=== PATIENT | male | born 1940 | race Caucasian/White ===

== ENCOUNTER 2016-05-18 19:47 | Emergency (ER) | payer OTHER ==
[~2016-05-18] VITALS: Ht 182.9 cm; Wt 112.5 kg
[~2016-05-18 19:47] MED LIST: ASPI81TA2 PO; CARV12.52 PO; CLOP75TA PO; CRESTOR10 MG PO; FURO20TA3 PO; OXYC-323 PO; PARO10TA3 PO; RAMI5CAP PO
[2016-05-18 20:54] LABS: BASO % 0 % (0-3); EOS % 2 % (0-3); HEMATOCRIT 47.5 % (39.0-53.0); HEMOGLOBIN 15.6 g/dL (13.0-17.5); LYMPH # 1.8 x10^3/uL (1.0-4.8); LYMPH % 21 % (24-48); MEAN CORPUSCULAR HEMOGLOBIN 30 pg (25-35); MEAN CORPUSCULAR HGB CONC 33 g/dL (31-37); MEAN CORPUSCULAR VOLUME 91 fL (79-100); MONO % 10 % (0-9); NEUT % 67 % (31-73); PLATELET COUNT 205 x10^3/uL (140-400); RED BLOOD COUNT 5.21 x10^6/uL (4.30-5.70); RED CELL DISTRIBUTION WIDTH 14.2 % (11.5-14.5); WHITE BLOOD COUNT 8.7 x10^3/uL (4.0-11.0)
[2016-05-18 21:04] LABS: CALCIUM 9.3 mg/dL (8.5-10.1); GFR 72.5; POTASSIUM 4.5 mmol/L (3.5-5.1)
--- NOTE | 2016-05-18 21:05 | PHYS DOC ---
Past Medical History Past Medical History: A-Fib, CHF, Hypertension, [place] Additional Past Medical Histor: HYPOGLYCEMIA Past Surgical History: Cholecystectomy Additional Past Surgical Histo: 12 STENTS Alcohol Use: None Drug Use: None Adult General Chief Complaint Chief Complaint: WEAKNESS/GENERALIZED HPI HPI Patient is a 76 year old male who presents by EMS for general weakness and fatigue for the past 3 weeks and an episode of hematuria 3 days ago. He has normal urine since that time. He denies fever or chills, nausea or vomiting, diarrhea, constipation, dark or bloody stools, dysuria, chest pain, dyspnea, orthopnea, worsening of chronic leg swelling, worsening of chronic back pain. Review of Systems Review of Systems Constitutional: Denies fever or chills [] Eyes: Denies change in visual acuity, redness, or eye pain [] HENT: Denies nasal congestion or sore throat [] Respiratory: Denies cough or shortness of breath [] Cardiovascular: No additional information not addressed in HPI [] GI: Denies abdominal pain, nausea, vomiting, bloody stools or diarrhea [] : Denies dysuria [] Musculoskeletal: Denies back pain or joint pain [] Integument: Denies rash or skin lesions [] Neurologic: Denies headache, focal weakness or sensory changes [] Endocrine: Denies polyuria or polydipsia [] Allergies Allergies Allergies Coded Allergies Type Severity Reaction Last Updated Verified acetaminophen Allergy Intermediate 10/16/15 Yes Physical Exam Physical Exam Constitutional: Well developed, well nourished, no acute distress, non-toxic appearance. [] HENT: Normocephalic, atraumatic, bilateral external ears normal, oropharynx moist, no oral exudates, nose normal. [] Eyes: PERRLA, EOMI. [] Neck: Normal range of motion, supple. [] Cardiovascular:Heart rate regular rhythm [] Lungs & Thorax: Bilateral breath sounds clear to auscultation [] Abdomen: Bowel sounds normal, soft, no tenderness. [] Skin: Warm, dry, no erythema, no rash. [] Back: No tenderness, no CVA tenderness. [] Extremities: No tenderness, ROM intact, bilateral 1+ LE edema. [] Neurologic: Alert and oriented X 3, normal motor function, normal sensory function, no focal deficits noted. [] Psychologic: Affect normal, judgement normal, mood normal. [] Current Patient Data Vital Signs Vital Signs Date Time Temp Pulse Resp B/P Pulse Ox O2 Delivery O2 Flow Rate FiO2 05/18/16 21:50 84 15 178/103 95 Room Air 05/18/16 19:50 97.9 97.9 Lab Values Laboratory Tests Test 05/18/16 20:00 05/18/16 21:00 White Blood Count 8.7x10^3/uL (4.0-11.0) Red Blood Count 5.21x10^6/uL (4.30-5.70) Hemoglobin 15.6g/dL (13.0-17.5) Hematocrit 47.5% (39.0-53.0) Mean Corpuscular Volume 91fL (79-100) Mean Corpuscular Hemoglobin 30pg (25-35) Mean Corpuscular Hemoglobin Concent 33g/dL (31-37) Red Cell Distribution Width 14.2% (11.5-14.5) Platelet Count 205x10^3/uL (140-400) Neutrophils (%) (Auto) 67% (31-73) Lymphocytes (%) (Auto) 21% (24-48) L Monocytes (%) (Auto) 10% (0-9) H Eosinophils (%) (Auto) 2% (0-3) Basophils (%) (Auto) 0% (0-3) Neutrophils # (Auto) 5.8x10^3uL (1.8-7.7) Lymphocytes # (Auto) 1.8x10^3/uL (1.0-4.8) Monocytes # (Auto) 0.9x10^3/uL (0.0-1.1) Eosinophils # (Auto) 0.2x10^3/uL (0.0-0.7) Basophils # (Auto) 0.0x10^3/uL (0.0-0.2) Sodium Level 141mmol/L (136-145) Potassium Level 4.5mmol/L (3.5-5.1) Chloride Level 102mmol/L (98-107) Carbon Dioxide Level 28mmol/L (21-32) Anion Gap 11 (6-14) Blood Urea Nitrogen 17mg/dL (8-26) Creatinine 1.0mg/dL (0.7-1.3) Estimated GFR (Cockcroft-Gault) 72.5 Glucose Level 109mg/dL (70-99) H Calcium Level 9.3mg/dL (8.5-10.1) Creatine Kinase 59U/L (39-308) Troponin I Quantitative < 0.017ng/mL (0.000-0.055) IO-Zxd-I-Type Natriuretic Peptide 673pg/mL (0-449) H Urine Collection Type Unknown Urine Color Yellow Urine Clarity Clear Urine pH 5.0 Urine Specific [place] 1.025 Urine Protein 30mg/dL (NEG-TRACE) Urine Glucose (UA) Negativemg/dL (NEG) Urine Ketones (Stick) Negativemg/dL (NEG) Urine Blood Trace (NEG) Urine Nitrite Negative (NEG) Urine Bilirubin Small (NEG) Urine Urobilinogen Dipstick 0.2mg/dL (0.2 mg/dL) Urine Leukocyte Esterase Negative (NEG) Urine RBC Occ/HPF (0-2) Urine WBC Occ/HPF (0-4) Urine Squamous Epithelial Cells Occ/LPF Urine Bacteria 0/HPF (0-FEW) Urine Hyaline Casts Few/HPF Urine Mucus Mod/LPF Laboratory Tests 05/18/16 20:00 Laboratory Tests 05/18/16 20:00 EKG EKG EKG as interpreted by me as atrial fibrillation, rate 69, no ST-T changes Course & Med Decision Making Course & Med Decision Making Pertinent Labs and Imaging studies reviewed. (See chart for details) Workup is unremarkable. He would like to go home. Return precautions given. He understands and agrees with plan. Dragon Disclaimer Dragon Disclaimer This electronic medical record was generated, in whole or in part, using a voice recognition dictation system. Departure Departure Impression: Primary Impression: Fatigue Additional Impression: Hematuria Disposition: HOME, SELF-CARE Condition: STABLE Referrals: COLLINS WARNER MD (PCP) Patient Instructions: Hematuria, Adult Additional Instructions: Follow-up with your primary care doctor. Return for any concerns. Problem Qualifiers Primary Impression: Fatigue Fatigue type: unspecified Qualified Code: R53.83 - Other fatigue Angie BHATIA MD May 18, 2016 21:05
[2016-05-18 21:16] LABS: BILIRUBIN,URINE SMALL (NEG); GLUCOSE,URINE NEGATIVE (NEG); NITRITE,URINE NEGATIVE (NEG); PROTEIN,URINE 30 mg/dL (NEG-TRACE); UROBILINOGEN,URINE 0.2 mg/dL (0.2 mg/dL)
[2016-05-18 21:32] LABS: BACTERIA,URINE 0 /HPF (0-FEW); RBC,URINE OCC /HPF (0-2); SQUAMOUS EPITHELIAL CELL,UR OCC /LPF; WBC,URINE OCC /HPF (0-4)
[2016-05-18 21:50] VITALS: BP 178/103
--- NOTE | 2016-05-19 09:46 | EKG ---
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
== END 2016-05-18 21:55 | disposition home or self-care (01) ==
LOC: ER 19:47
DX: R31.9 Hematuria, unspecified (principal); R53.1 Weakness; R53.83 Other fatigue; I11.0 Hypertensive heart disease with heart failure; I50.9 Heart failure, unspecified; I48.91 Unspecified atrial fibrillation; I25.2 Old myocardial infarction; Z95.5 Presence of coronary angioplasty implant and graft; Z90.49 Acquired absence of other specified parts of digestive tract; Z88.6 Allergy status to analgesic agent
CPT/HCPCS: 36415; 80048; 81001; 82550; 83880; 84484; 85027; 93005; 99285-25

== ENCOUNTER 2016-09-26 14:19 | Observation (INO) | payer OTHER ==
[~2016-09-26] VITALS: Ht 182.9 cm; Wt 115.2 kg
[~2016-09-26 14:19] MED LIST changes: +ASPI-630 PO; -ASPI81TA2 PO
--- NOTE | 2016-09-26 14:40 | RAD ---
Portable AP upright view CXR: Clinical indications: The patient passed out and fell. Weakness. Comparison: None available. Findings: No acute lung infiltrate or pleural effusion or pulmonary edema or lung mass or pneumothorax is seen. The heart size, pulmonary vasculature, mediastinum and both yair are unremarkable given rotation towards the right side and AP magnification. Impression: No acute radiographic abnormality is seen.
[2016-09-26 14:53] LABS: BASO % 0 % (0-3); EOS % 2 % (0-3); HEMOGLOBIN 15.3 g/dL (13.0-17.5); LYMPH # 1.5 x10^3/uL (1.0-4.8); LYMPH % 19 % (24-48); MEAN CORPUSCULAR HEMOGLOBIN 30 pg (25-35); MEAN CORPUSCULAR HGB CONC 33 g/dL (31-37); MEAN CORPUSCULAR VOLUME 91 fL (79-100); MONO % 10 % (0-9); NEUT % 69 % (31-73); PLATELET COUNT 198 x10^3/uL (140-400); RED BLOOD COUNT 5.08 x10^6/uL (4.30-5.70); WHITE BLOOD COUNT 7.9 x10^3/uL (4.0-11.0)
[2016-09-26 15:22] LABS: CALCIUM 9.2 mg/dL (8.5-10.1); CREATININE 1.4 mg/dL (0.7-1.3); GFR 49.1; POTASSIUM 3.7 mmol/L (3.5-5.1)
[2016-09-26 15:27] LABS: ALBUMIN 3.7 g/dL (3.4-5.0); ALBUMIN/GLOBULIN RATIO 1.1 (1.0-1.7); TOTAL BILIRUBIN 0.7 mg/dL (0.2-1.0); TOTAL PROTEIN 7.2 g/dL (6.4-8.2)
--- NOTE | 2016-09-26 15:40 | RAD ---
CT head without intravenous contrast History: Left-sided drift, syncope. Comparison: None. Technique: Axial images are obtained of the head from the skull base through the vertex without IV contrast. Exposure: One or more of the following individualized dose reduction techniques were utilized for this examination: 1. Automated exposure control 2. Adjustment of the mA and/or kV according to patient size 3. Use of iterative reconstruction technique Findings: The ventricles are appropriate in size, shape, and location for the patient's age. No obvious intracranial mass, mass-effect, midline shift, hemorrhage or obvious acute infarction is identified. Basilar cisterns are patent. Bone windows demonstrate no acute calvarial abnormality. The visualized paranasal sinuses appear clear. Impression: No acute intracranial process. Please note that CT can be relatively insensitive to acute ischemic infarction for up to [address] cervical spine History: Left-sided drift, syncope. Comparison: None. Technique: Noncontrast CT of the cervical spine was performed using helical technique. Axial, sagittal, coronal reconstructions were obtained. Exposure: One or more of the following individualized dose reduction techniques were utilized for this examination: 1. Automated exposure control 2. Adjustment of the mA and/or kV according to patient size 3. Use of iterative reconstruction technique Findings: There is no evidence of acute fracture or acute malalignment involving the cervical spine. No prevertebral soft tissue swelling is identified. Multilevel degeneration is seen with facet and uncovertebral hypertrophy. Multiple level levels demonstrate anterior disc osteophytes. Impression: 1. No evidence of acute traumatic injury involving the cervical spine. 2. Degeneration. Electronically signed by: Martin Li MD (09/26/2016 3:37 PM) [place] [id number]
--- NOTE | 2016-09-26 15:55 | PHYS DOC ---
Past Medical History Past Medical History: A-Fib, CHF, Hypertension, [place] Additional Past Medical Histor: HYPOGLYCEMIA Past Surgical History: Cholecystectomy Additional Past Surgical Histo: 12 STENTS Alcohol Use: None Drug Use: None Adult General Chief Complaint Chief Complaint: WEAKNESS/GENERALIZED HPI HPI 76-year-old male presenting to the emergency department with a possible syncopal episode around 12:30. He reports mowing his lawn when he came inside to cool off he fell back and hit the back of his head. He is mild pain in his head in the midline of his neck. It is nonradiating intermittent and without alleviating factors. He reports not eating as much as normally yesterday. He does have a history of hypoglycemia [place] and CHF. He denies having chest pain shortness of breath or any of the anginal equivalents. Now, he is feeling much better other than a mild headache after sustaining head injury. Review of systems is negative for fevers chills nausea vomiting chest pain shortness of breath abdominal pain. All other review of systems is negative unless otherwise noted in history of present illness. ED course: 76-year-old male presenting to the emergency department today with a possible syncopal episode and head trauma. Triage vital signs afebrile with normal heart rate. Initially the patient was saturating 90% on room air placed on 2 liters nasal cannula. During the patient's emergency department stay he was noted at approximately 14 55 patient had left sided weakness of his upper and lower extremity. I went to evaluate the patient immediately after arriving here at 1505 . On my examination the patient has a normal neurologic examination. Head neck CT obtained which were unremarkable. Blood work obtained as well which was unremarkable. Given the patient's unilateral focal neurologic deficits and hypoxia, the patient was admitted to our hospital for further evaluation workup and care. Review of Systems Review of Systems SEE ABOVE. Current Medications Current Medications Current Medications Medications (Trade) Dose Ordered Sig/Radha Start Time Stop Time Status Last Admin Dose Admin Albuterol/ Ipratropium (Duoneb) 3 ml RTQID 09/26/16 16:00 09/27/16 15:59 09/26/16 21:15 3 ML Aspirin (Children'S Aspirin) 324 mg 1X ONCE 09/26/16 16:00 09/26/16 16:01 DC 09/26/16 16:32 324 MG Morphine Sulfate 2 mg PRN Q2HR PRN 09/26/16 16:00 09/27/16 15:59 Ondansetron HCl (Zofran) 4 mg PRN Q8HRS PRN 09/26/16 16:00 09/27/16 15:59 Allergies Allergies Allergies Coded Allergies Type Severity Reaction Last Updated Verified acetaminophen Allergy Intermediate 10/16/15 Yes Physical Exam Physical Exam SEE ABOVE Constitutional: Well developed, well nourished, no acute distress, non-toxic appearance. [] HENT: Normocephalic, atraumatic, bilateral external ears normal, oropharynx moist, no oral exudates, nose normal. [] Eyes: PERRLA, EOMI, conjunctiva normal, no discharge. [] Neck: Normal range of motion, no tenderness, supple, no stridor. [] Cardiovascular:Heart rate regular rhythm, no murmur [] Lungs & Thorax: Bilateral breath sounds clear to auscultation [] Abdomen: Bowel sounds normal, soft, no tenderness, no masses, no pulsatile masses. [] Skin: Warm, dry, no erythema, no rash. [] Back: No tenderness, no CVA tenderness. [] Extremities: No tenderness, no cyanosis, no clubbing, ROM intact, no edema. [] Neurologic: Mental status: Awake oriented and alert x3 Cranial nerves: Extraocular movements intact, eyebrows daiana bilaterally smile symmetric, uvula elevation, shoulder shrug intact, tongue protrusion normal DTRs: 2+ Sensation: equal and normal in all extremities Strength: 5/5 in upper and lower extremities bilaterally Psychologic: Affect normal, judgement normal, mood normal. [] Current Patient Data Vital Signs Vital Signs Date Time Temp Pulse Resp B/P (MAP) Pulse Ox O2 Delivery O2 Flow Rate FiO2 09/26/16 15:56 78 14 109/82 (91) 98 09/26/16 15:11 Nasal Cannula 2.0 09/26/16 14:19 98.2 98.2 Lab Values Laboratory Tests Test 09/26/16 14:45 09/26/16 15:35 09/26/16 15:53 White Blood Count 7.9 x10^3/uL (4.0-11.0) Red Blood Count 5.08 x10^6/uL (4.30-5.70) Hemoglobin 15.3 g/dL (13.0-17.5) Hematocrit 46.0 % (39.0-53.0) Mean Corpuscular Volume 91 fL (79-100) Mean Corpuscular Hemoglobin 30 pg (25-35) Mean Corpuscular Hemoglobin Concent 33 g/dL (31-37) Red Cell Distribution Width 14.0 % (11.5-14.5) Platelet Count 198 x10^3/uL (140-400) Neutrophils (%) (Auto) 69 % (31-73) Lymphocytes (%) (Auto) 19 % (24-48) L Monocytes (%) (Auto) 10 % (0-9) H Eosinophils (%) (Auto) 2 % (0-3) Basophils (%) (Auto) 0 % (0-3) Neutrophils # (Auto) 5.5 x10^3uL (1.8-7.7) Lymphocytes # (Auto) 1.5 x10^3/uL (1.0-4.8) Monocytes # (Auto) 0.8 x10^3/uL (0.0-1.1) Eosinophils # (Auto) 0.2 x10^3/uL (0.0-0.7) Basophils # (Auto) 0.0 x10^3/uL (0.0-0.2) Sodium Level 139 mmol/L (136-145) Potassium Level 3.7 mmol/L (3.5-5.1) Chloride Level 100 mmol/L (98-107) Carbon Dioxide Level 30 mmol/L (21-32) Anion Gap 9 (6-14) Blood Urea Nitrogen 16 mg/dL (8-26) Creatinine 1.4 mg/dL (0.7-1.3) H Estimated GFR (Cockcroft-Gault) 49.1 BUN/Creatinine Ratio 11 (6-20) Glucose Level 126 mg/dL (70-99) H Calcium Level 9.2 mg/dL (8.5-10.1) Total Bilirubin 0.7 mg/dL (0.2-1.0) Aspartate Amino Transferase (AST) 49 U/L (15-37) H Alanine Aminotransferase (ALT) 53 U/L (16-63) Alkaline Phosphatase 119 U/L (46-116) H Troponin I Quantitative < 0.017 ng/mL (0.000-0.055) AK-Apu-F-Type Natriuretic Peptide 845 pg/mL (0-449) H Total Protein 7.2 g/dL (6.4-8.2) Albumin 3.7 g/dL (3.4-5.0) Albumin/Globulin Ratio 1.1 (1.0-1.7) Lactic Acid Level 2.0 mmol/L (0.4-2.0) Urine Collection Type Unknown Urine Color Dk yellow Urine Clarity Hazy Urine pH 5.0 Urine Specific [place] 1.020 Urine Protein Negative mg/dL (NEG-TRACE) Urine Glucose (UA) Negative mg/dL (NEG) Urine Ketones (Stick) Negative mg/dL (NEG) Urine Blood Negative (NEG) Urine Nitrite Negative (NEG) Urine Bilirubin Small (NEG) Urine Urobilinogen Dipstick 1.0 mg/dL (0.2 mg/dL) Urine Leukocyte Esterase Trace (NEG) Urine RBC 0 /HPF (0-2) Urine WBC Occ /HPF (0-4) Urine Squamous Epithelial Cells Occ /LPF Urine Bacteria 0 /HPF (0-FEW) Urine Hyaline Casts Many /HPF Urine Mucus Marked /LPF Urine Opiates Screen Pos (NEG) Urine Methadone Screen Neg (NEG) Urine Barbiturates Neg (NEG) Urine Phencyclidine Screen Neg (NEG) Urine Amphetamine/Methamphetamine Neg (NEG) Urine Benzodiazepines Screen Pos (NEG) Urine Cocaine Screen Neg (NEG) Urine Cannabinoids Screen Neg (NEG) Urine Ethyl Alcohol Neg (NEG) Laboratory Tests 09/26/16 14:45 Laboratory Tests 09/26/16 14:45 EKG EKG [] Radiology/Procedures Radiology/Procedures [] Course & Med Decision Making Course & Med Decision Making Pertinent Labs and Imaging studies reviewed. (See chart for details) [] Dragon Disclaimer Dragon Disclaimer This electronic medical record was generated, in whole or in part, using a voice recognition dictation system. Departure Departure Impression: Primary Impression: Generalized weakness Additional Impressions: Head injury Unilateral weakness TIA (transient ischemic attack) Disposition: 09 ADMITTED INPATIENT Admitting Physician: Other (premsingh) Condition: STABLE Referrals: COLLINS WARNER MD (PCP) Problem Qualifiers ROSANA LARSON MD Sep 26, 2016 15:54
[2016-09-26 16:00] LABS: BILIRUBIN,URINE SMALL (NEG); GLUCOSE,URINE NEGATIVE (NEG); NITRITE,URINE NEGATIVE (NEG); PROTEIN,URINE NEGATIVE (NEG-TRACE)
[2016-09-26] MEDS ORDERED: ONDANSETRON PF 4 MG/2 ML VIAL. IV PRN (16:00)
[2016-09-26] MEDS ORDERED: ASPIRIN CHEWABLE 81 MG TABLET. PO ONE (16:00)
[2016-09-26] MEDS ORDERED: MORPHINE SULFATE 2 MG/ML DISP.SYRIN. IV PRN (16:00)
[2016-09-26 16:07] LABS: RBC,URINE 0 /HPF (0-2)
[2016-09-26 16:08] LABS: BACTERIA,URINE 0 /HPF (0-FEW); SQUAMOUS EPITHELIAL CELL,UR OCC /LPF; WBC,URINE OCC /HPF (0-4)
[2016-09-26 16:13] LABS: BARBITURATES NEG (NEG); BENZODIAZEPINES POS (NEG); CANNABINOIDS NEG (NEG); COCAINE NEG (NEG); METHADONE NEG (NEG); OPIATES POS (NEG); PHENCYCLIDINE NEG (NEG)
[2016-09-26] MEDS: IPRATRPIUM/ALBUTEROL 0.5/2.5MG 3 ML NEBU. NEB SCH ×2 (16:36→21:15)
[2016-09-26] MEDS ORDERED: OXYC10TA PO (18:15)
[2016-09-26] MEDS ORDERED: ALPR1TAB6 PO (18:15)
[2016-09-26] MEDS ORDERED: NITR0.4T22 SL (18:20)
[2016-09-26 19:00] VITALS: BP 99/55
[2016-09-26] MEDS ORDERED: PNEUMOCOCCAL VAX SCREEN BY RX. MC ONE (19:00)
[2016-09-26] MEDS ORDERED: NITROGLYCERIN SUBLINGUAL 0.4 MG BOTTLE OF 25. SL PRN (21:00)
[2016-09-26] MEDS ORDERED: ALPRAZolam 1 MG TABLET PO PRN (21:00)
[2016-09-26] MEDS ORDERED: ATORVASTATIN CALCIUM 40 MG TABLET. PO SCH (21:00)
[2016-09-26 23:00] VITALS: BP 137/70
--- NOTE | 2016-09-27 02:08 | CONS ---
DATE OF CONSULTATION: 09/26/2016 REFERRING PHYSICIAN: Dr. Vitale. REASON FOR CONSULTATION: Episode of syncope and possible transient ischemic attack. HISTORY OF PRESENT ILLNESS: The patient is a 76-year-old man who was out mowing his lawn today. He felt weak and dizzy and stopped mowing his lawn and came inside. Once inside, he felt worse and struck the floor with the back of his head. He feels back to his usual self. In the Emergency Room, they noted after he had been here a while, that he had some drift of his left arm and leg, but this only lasted 10 minutes and resolved. Of note is that he has broken his left shoulder twice and it is very painful to hold up his arm and he has weakness. 911 was activated to bring in to the Emergency Room because he was unable to get up off the floor. He feels stronger than he was on the floor, but still does not feel quite back to normal. His entire body aches from his activities many years ago. He does not complain of any headache. He is not aware of any cognitive changes. He has been able to speak and understand. There has been no acute change in vision or hearing. He is not aware of any focal weakness of an arm or leg other than the chronic weakness of his left shoulder from prior injury. PAST MEDICAL HISTORY: 1. Congestive heart failure. 2. Hypertension. 3. Myocardial infarction. 4. Atrial fibrillation. 5. Hypoglycemia. 6. Cholecystectomy. 7. Coronary artery disease, status post stents. ALLERGIES: ACETAMINOPHEN. MEDICATIONS PRIOR TO ADMISSION: Alprazolam 1 mg every 6 hours as needed, aspirin 81 mg, carvedilol 12.5 mg twice per day, clopidogrel 75 mg, furosemide 20 mg, nitroglycerin sublingual as needed, oxycodone 10 mg every 6 hours as needed, paroxetine 10 mg, ramipril 5 mg and rosuvastatin 10 mg. FAMILY HISTORY: Noncontributory. SOCIAL HISTORY: He has been a for 3 years. He has a woman that comes in 3 times a day to help him out and fix meals. He lives alone. He does not drink alcohol or use recreational drugs. REVIEW OF SYSTEMS: He does not have a headache. There has been no change of vision or hearing. He has had no change in speech or cognition that he is aware. He has been able to swallow without difficulty. He has not had shortness of breath, chest or abdominal pain. He does have a lot of bone and joint pain. He has especially left shoulder pain as he fractured it twice in a 2-month time frame from trauma. He notes weakness holding the arm out in front of him and up in the air. There has been no fever or rash. He has not had gastrointestinal or genitourinary complaints. He does have chronic swelling of his feet and legs. He denies any psychiatric complaints. He does complain of some numbness in his feet. His balance has been a little off. He does not complain of easy bruising or bleeding. PHYSICAL EXAMINATION: VITAL SIGNS: The blood pressure was 99/55, pulse 78, respirations 20, temperature 98.5 degrees Fahrenheit. Oximetry was 99% on room air. His weight was 239 pounds with height of 72 inches and a calculated body mass index of 32.4. GENERAL: He was alert, awake and cooperative. Speech, plodded along, was slow and methodical. He was slightly confused thinking he had actually been in the hospital for one day, when in fact he was just admitted today and has not yet spent the night. His fund of recent and remote knowledge seemed fair. Attention and concentration was intact. He was oriented. His grooming was fair and he was well nourished. NEUROLOGIC: Examination of the cranial nerves revealed visual yi were full to confrontation. Extraocular movements were intact. The eyes were conjugate. Pursuit movements were smooth and saccadic eye movements were without dysmetria. There was no nystagmus. Pupils were 2-3 mm and reactive. Funduscopic exam did not reveal papilledema. Facial sensation was intact. The muscles of mastication and facial expression were powerful symmetrically. Hearing was intact to finger rub. The palate arched symmetrically and the tongue was midline with full range of motion. Sternocleidomastoid and trapezius were powerful. Muscle bulk and tone was normal. There was no spasticity, rigidity or tremor. The power was full and symmetric in the upper and lower extremities except for weakness in the left shoulder with abduction and external rotation. Reflexes 1/4 and symmetric in the upper extremities and knees, trace in the left foot, absent in the right foot. The toes were not upgoing. Coordination testing with [id number], [id number], fine motor and rapid alternating movements was fairly well performed. Sensory exam was intact to pain, light touch, proprioception, graphesthesia, cold thermal and vibration in the upper extremities, but there was some sensory shading in the feet to the level of the ankle with pain, cold thermal and light touch. Vibration was much better perceived at the knee than at the ankle. There was no extinction to double simultaneous stimulation. Gait was of a normal base and was fairly steady. He took smaller methodical steps. With balance support he could attempt to heel and toe walk and could do so for a step or two. The Romberg stance was negative. NECK: Auscultation of the carotid arteries did not reveal a bruit. HEART: Rhythm was regular without a murmur. EXTREMITIES: Peripheral pulses were symmetric at the wrist, 1/4 in the feet. There was significant edema of the feet and calves. LABORATORY DATA: CBC revealed a normal white blood cell count, hemoglobin, hematocrit and platelet count. The electrolytes were normal. BUN was 16. Creatinine was elevated at 1.4 with a calculated GFR at 49.1. Glucose was elevated at 126. Calcium was normal as was total bilirubin. SGOT was elevated at 49 and SGPT was normal. Alkaline phosphatase was elevated at 119. BNP was elevated at 845. Troponin was not elevated. Albumin and total protein were normal. Urine drug screen is positive for opiates which he is prescribed. Urinalysis revealed a small amount of bilirubin, trace leukocyte esterase, occasional white cells and epithelial cells, many hyaline casts. CT scan of the brain was performed as well as CT of the cervical spine. There was no acute intracranial process noted. Cervical spine revealed degeneration, but no traumatic injury of the spine. IMPRESSION: The patient is a 76-year-old man who was out mowing his lawn, came inside and felt very poorly. This could have been hypoglycemia, vasovagal event, overheating and collapse, cardiac rhythm disturbance or hypotension. The Emergency Room was concerned about a possible TIA as well as a syncope as they felt there was some left arm and leg drift for a period of time. Neurologically, there is left arm drift because he has a prior shoulder injury. I am not sure what to make of the left leg drift, but certainly there could have been a TIA. At this present time, his exam is normal, although I think at baseline he has some cognitive deficits. He is on appropriate medications for stroke prevention with aspirin, Plavix and Crestor. He does not currently have atrial fibrillation. I am not sure history comes from. If potentially there is atrial fibrillation, then anticoagulation may be indicated as a stroke preventative unless the risk for falling is too great. RECOMMENDATIONS: I have ordered a carotid Doppler and echocardiogram to further evaluate for stroke risk. He will continue with aspirin and Plavix unless Cardiology deems he is appropriate for anticoagulation. We will obtain a fasting lipid profile in the morning to make sure the Crestor is effective. We can check orthostatic blood pressures. I appreciate being involved in his care. SUSAN GOYAL MD DR: МАРИНА/lorna JOB#: [id number] / [id number] Dr. TIMMY Black NALINI MD Shi, Dr.
--- NOTE | 2016-09-27 02:47 | ACF ---
Admission Forms Criteria TELEMETRY CARE Telemetry Admission Guidelines (Place 'X' for any and all applicable criteria): Admission to telemetry [A] may be indicated for ANY ONE of the following(1)(2)(3 )(4)(5): [ ]I. Cardiac disease, including ANY ONE of the following (9)(10)(11)(12)(13 ): TRANSIENT ISCHEMIC ATTACK (TIA) Clinical Indications for Admission to Inpatient Care (Place 'X' for any and all applicable criteria): Admission is indicated for ANY ONE of the following(1)(2)(3)(4)(5): [ ]I. Immediate inpatient procedure is needed (eg, endarterectomy). [ ]II. Inpatient admission required rather than observation care (Also use Transient Ischemic Attack (TIA): Observation Care Criteria as appropriate) because of ANY ONE of the following: [ ]a) Focal neurologic signs or symptoms persist or recurring [ ]b) Cardiac arrhythmias of immediate concern [ ]c) Clinically significant cardiac disorder identified that requires inpatient care (eg, severe valvular disease, atrial myxoma, cardiomyopathy) [ ]d) Hypertension requiring inpatient treatment [ ]e) Parenteral anticoagulation required (eg, alternative forms of anticoagulation not appropriate or not feasible) as indicated by ALL of the following(13): [ ]i) Temporary subtherapeutic anticoagulation unacceptable because of high risk of short-term venous or arterial thromboembolism due to ANY ONE of the following(14)(15)(16): [ ]1) Atrial fibrillation suspected as etiology of TIA(17)(18)(19)(20)(21) [ ]2) Venous thromboembolism within past 12 months [ ]3) Underlying malignancy [ ]4) Patient with mechanical cardiac valve(22)( 23) [ ]5) Underlying hypercoagulable state (eg, protein C or protein S deficiency antithrombin deficiency, antiphospholipid antibodies) [ ]6) Patient at temporary high risk of thromboembolism (eg, status post orthopedic surgery) [ ]ii) Contraindications to outpatient use of "bridging" agent or alternative oral anticoagulant[B] as indicated by ALL of the following: [ ]1) Contraindication to outpatient use of low- molecular-weight heparin as "bridging" agent as indicated by ANY ONE of the following(15): [ ]A. Documented current or history of heparin-induced thrombocytopenia(24) [ ]B. Severe thrombocytopenia (eg, platelet count less than 50,000/mm3 (22w310/L) [ ]C. Documented allergy to heparin, low- molecular-weight heparin, or pork products [ ]D. Renal failure (creatinine clearance less than 30 mL/min/1.73m2 (0.50mL/sec/1.73m2) or on dialysis) [ ]E. Inability to manage self-injection ( eg, by patient, caregiver, or visiting nurse) [ ]2) Contraindication to outpatient use of fondaparinux as "bridging" agent as indicated by ANY ONE of the following(25)(26 )(27)(28): [ ]A. Severe thrombocytopenia (eg, platelet count less than 50,000/mm3 (50 x109/L)) [ ]B.Hypersensitivity to fondaparinux, related drugs, or product components [ ]C.Renal failure (creatinine clearance less than 30 mL/min/1.73m2 (0.50mL/sec/1.73m2) or on dialysis) [ ]D.Inability to manage self-injection ( eg, by patient, caregiver, or visiting nurse [ ]3. Oral direct thrombin inhibitor (eg, dabigatran) or oral coagulation factor Xa inhibitor (eg, rivaroxaban, apixaban) not appropriate as oral anticoagulation (eg, indication not appropriate) or contraindicated (eg, hypersensitivity, creatinine clearance less than 15 mL/min/1.73m2 ( 0.25 mL/sec/1.73m2) or on dialysis). [ ]f) Continuous IV infusion of anticoagulant, platelet inhibitor, vasoactive or antiarrhythmia(18)(19) [ ]g) Other condition, treatment, or monitoring requiring inpatient admission [ ]III. Contraindications and/or Inappropriate clinical situations for Observational Care in patients with Transient Ischemic Attack (TIA), when ANY ONE of the following is required: [ ]a) Patient with persistent or severe neurological deficit 24 [ ]b) Patient with acute CVA or other identified pathology should be admitted to inpatient for further care 25 [ X]IV. General contraindications and/or Inappropriate clinical situations for Observational Care in patients with Transient Ischemic Attack (TIA), when ANY ONE of the following is required: [ X]a) Prediction of prolongation of LOS based on ANY ONE of the following may be considered as a contraindication for observational care 2, 3, 4, 5, 6, 7, 8, 9, 10, 11 [ X]i) Age > 65 yrs. [ ]ii) Patient arriving by ambulance [ ]iii) Patient with high acuity [ ]iv) Patient requiring vital sign monitoring [X ]v) Patient on IV medication [ ]b) Systolic blood pressures 180mmHg 3,12 [ ]c) Patient with altered mental status including delirium and other alteration of consciousness, (3) [ ]d) Patient whose discharge disposition will be to a snf home or rehabilitation home should not be managed in Emergency Department Observation Unit. CMS rule requires 3 days hospital stay before such placement.3,13 [ ]e) Patient with failure to thrive due to broad array of etiologies 3,16,17 [ ]f) Inability to ambulate 3,14 Extended stay beyond goal length of stay may be needed for(4)(30)(32): [ ]a) Parenteral anticoagulation required [ ]b) Dangerous arrhythmia [ ]c) Cardiac valvular disorder, atrial myxoma, cardiomyopathy [ ]d) Uncontrolled severe hypertension [ ]e) Severe carotid stenosis [ ]f) Active comorbidities (eg, heart failure) [ ]g) Extracranial vertebrobasilar disease(29) [ ]h) Clinical evolution of TIA into cerebrovascular accident (stroke) The original [email or web address] content created by [email or web address] has been revised. The portions of thecontent which have been revised are identified through the use of italic text or in bold, and [employer] has neither reviewed nor approved the modified material. All other unmodified content is copyright [email or web address]. Please see references footnoted in the original [email or web address] edition 2016 [ ]a) Postacute MT [ ]b) Low-risk patients with ST-segment elevation MT who have undergone successful percutaneous coronary intervention [ ]c) Unstable angina [ ]d) Suspected MT (until it is ruled out) [ ]e) Post cardiac surgery (first 48 to 72 hours unless complications occur) [ ]f) Acute arrhythmias (including significant tachycardia or bradycardia) [B] [ ]g) Firing of an implantable cardioverter defibrillator [C] [ ]h) Suspected pacemaker or implantable cardioverter defibrillator malfunction (10) [ ]i) New administration or adjustment of an antiarrhythmic drug [D ] [ ]j) Child admitted for acute congestive heart failure [ ]j) Long QT syndrome [ ]k) Advanced heart block (eg, second-degree Mobitz type II, third- degree heart block) [ ]l) Acute myocarditis or pericarditis [ ]m) Short-term (ambulatory or inpatient) monitoring after a cardiac procedure as indicated by ANY ONE of the following [E]: [ ]i) Electrophysiologic studies [ ]ii) Percutaneous coronary intervention with stent placement [ ]iii) Pacemaker placement with cardiac conduction defect [ ]iv) Implantable cardiac defibrillator placement [ ]II. Drug overdose or poisoning with substance that causes arrhythmias or QT prolongation (eg, phenothiazines, sympathomimetic agents, cyclic antidepressants, digitalis, antiarrhythmic drugs)(15) [ ]III. Short-term (ambulatory or inpatient) monitoring after therapeutic or diagnostic procedure requiring conscious sedation or anesthesia (eg, endoscopy, elective cardioversion) [ ]IV. Acute cerebrovascular even[F](18) [ ]V. Massive blood transfusion (eg, at least 10 units of packed red blood cells in 24 hours) [ ]. Variceal bleeding after endoscopy, sclerotherapy, or IV vasopressin [ ]VII. Uncorrected electrolyte abnormalities associated with an increased risk of dangerous arrhythmia [G]; examples include [ ]a) Hyperkalemia with attributable ECG changes [ ]b) Potassium greater than 6.5 mmol/L (mEq/L) in a patient without history of chronic renal disease [ ]c) Prolonged QT attributed to hypokalemia, hypomagnesemia, or hypocalcemia [ ]VIII.Unexplained syncope or other neurologic event suspected of being due to arrhythmia due to a finding that increases risk; examples include(19)(20)(21): [ ]a) High-risk ECG findings (eg, bifascicular block, bradycardia, abnormal QT interval, ventricular pre- excitation) [ ]b) History of previous syncope due to arrhythmia [ ]c) Abnormal ventricular function (eg, reduced ejection fraction ) [ ]d) Exertional or supine syncope [ ]e) Concerning syncope characteristics (eg, sudden loss of consciousness without prodrome) [ ]f) Family history of sudden [ ]g) Use of arrhythmogenic medication [ ]h) Suspected cardiac ischemia [ ]i) Known channelopathy (eg, long QT syndrome, Brugada syndrome, or catecholaminergic paroxysmal ventricular tachycardia) [ ]j) Known structural heart disease (eg, hypertrophic cardiomyopathy , severe valvular disease) [ ]k) Palpitations preceding syncope The original [facility] content created by [facility] has been revised. The portions of the content which have been revised are identified through the use of italic text or in bold, and [facility] has neither reviewed nor approved the modified material. All other unmodified content is copyright [facility] [employer] Please see references footnoted in the original [facility] edition 2016 Admission Criteria Met?: Yes BRITTNEY CHICAS Sep 27, 2016 02:47
[2016-09-27 03:00] VITALS: BP 153/77
[2016-09-27 04:27] VITALS: BP 153/77
[2016-09-27] MEDS: oxyCODONE IR 5 MG TABLET PO PRN ×2 (04:28→10:44)
[2016-09-27 05:04] LABS: BASO % 0 % (0-3); EOS % 4 % (0-3); HEMOGLOBIN 15.4 g/dL (13.0-17.5); LYMPH # 1.9 x10^3/uL (1.0-4.8); LYMPH % 31 % (24-48); MEAN CORPUSCULAR HEMOGLOBIN 30 pg (25-35); MEAN CORPUSCULAR HGB CONC 33 g/dL (31-37); MEAN CORPUSCULAR VOLUME 91 fL (79-100); MONO % 9 % (0-9); NEUT % 57 % (31-73); PLATELET COUNT 161 x10^3/uL (140-400); RED BLOOD COUNT 5.15 x10^6/uL (4.30-5.70); WHITE BLOOD COUNT 6.2 x10^3/uL (4.0-11.0)
[2016-09-27 05:29] LABS: CALCIUM 9.3 mg/dL (8.5-10.1); CREATININE 1.2 mg/dL (0.7-1.3); GFR 58.7
[2016-09-27 05:35] LABS: CHOLESTEROL/HDL RATIO 2.4
[2016-09-27] MEDS: IPRATRPIUM/ALBUTEROL 0.5/2.5MG 3 ML NEBU. NEB SCH ×3 (07:22→15:29)
[2016-09-27 07:55] VITALS: BP 100/67
[2016-09-27] MEDS ORDERED: CARVEDILOL 12.5 MG TABLET. PO SCH (08:00)
[2016-09-27] MEDS ORDERED: CLOPIDOGREL BISULFATE 75 MG TABLET PO SCH (09:00)
[2016-09-27] MEDS ORDERED: PNEUMOC CONJ VACC 23-VALENT 0.5 ML VIAL. VAX IM ONE (09:00)
[2016-09-27] MEDS ORDERED: FUROSEMIDE 20 MG TABLET PO SCH (09:00)
[2016-09-27] MEDS ORDERED: LISINOPRIL 10 MG TABLET PO SCH (09:00)
--- NOTE | 2016-09-27 09:05 | RAD ---
Clinical indications: TIA. Duplex sonography of the cervical portion of both carotid arteries was performed including color flow imaging and spectral waveform analysis with flow velocity measurement and marshall scale evaluation. Right side: Peak systolic flow velocity of the distal CCA is 66 cm/sec. Peak systolic flow velocity of the ICA is 79 cm/sec. Thus, the ICA/CCA ratio is 1.2. Peak end diastolic flow velocity of the ICA is 22 cm/sec. The peak systolic velocity of the ECA is 94 cm/sec. Left side: Peak systolic flow velocity of the distal CCA is 79 cm/sec. Peak systolic flow velocity of the ICA is 85 cm/sec. Thus, the ICA/CCA ratio is 0.85. Peak end diastolic flow velocity of the ICA is 23 cm/sec. Peak systolic flow velocity of the ECA is 119 cm/sec. There is mild plaque formation within the right carotid bulb and proximal right ICA.. There is mild plaque formation within the left carotid bulb and proximal left ICA. This is less than 50%. Antegrade vertebral flow is seen bilaterally. The measurements were made using the NASCET criteria. Impression:Mild plaque formation is seen within the carotid bifurcations bilaterally which is less than 50%.
--- NOTE | 2016-09-27 09:18 | EKG ---
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
[2016-09-27 10:39] VITALS: BP 135/67
--- NOTE | 2016-09-27 13:12 | CARD ---
APPROVED REPORT EXAM: Two-dimensional and M-mode echocardiogram with Doppler and color Doppler. Other Information Quality : AverageHR: 95bpm INDICATION Syncope 2D DIMENSIONS Left Atrium(2D)5.1 (1.6-4.0cm)IVSd0.9 (0.7-1.1cm) Aortic Root(2D)3.8 (2.0-3.7cm)LVDd4.6 (3.9-5.9cm) LVOT Diameter2.5 (1.8-2.4cm)PWd1.1 (0.7-1.1cm) LA Pnkjja06 (18-58mL)LVDs2.9 (2.5-4.0cm) FS (%) 36.3 %SV63.9 ml LVEF(%)60.0 (>50%) M-Mode DIMENSIONS Aortic Cusp Exc1.96 (1.5-2.0cm) Aortic Valve AoV Peak Alonzo.113.6cm/sAoV VTI19.2cm AO Peak GR.5.2mmHgLVOT VTI 13.88cm AO Mean GR.3mmHg Mitral Valve MV E Ehdbvdoh275.8cm/sMV E Peak Gr.5mmHg MV DECEL [id number] E Mean Gr.2mmHg MV [id number] (PHT)3.33cm2 TDI Lateral E' P. V11.91cm/sMedial E' P. V9.14cm/s E/Lateral E'9.1E/Medial E'11.9 Pulmonary Valve PV Peak Eyxuswwu09.8cm/s Tricuspid Valve TR P. [id number]/sRAP [id number] TR Peak Gr.97vbIhKJRI10qsOs LEFT VENTRICLE The left ventricle is normal size. There is normal left ventricular wall thickness. The left ventricu lar systolic function is normal and the ejection fraction is within normal range. LV EF of 60% No lef t ventricle thrombus noted on this study. There is no ventricular septal defect visualized. There is no left ventricular aneurysm. There is no mass noted in the left ventricle. RIGHT VENTRICLE The right ventricle is normal size. There is normal right ventricular wall thickness. The right ventr icular systolic function is normal. ATRIA The left atrium is measured at 5.1cm. dilated. The right atrium size is normal. There is no PFO noted on Doppler imaging, agitated contrast saline was not performed on this study. AORTIC VALVE The aortic valve is normal in structure and function. Doppler and Color Flow revealed no significant aortic regurgitation. There is no significant aortic valvular stenosis. There is no aortic valvular v egetation. MITRAL VALVE The mitral valve is normal in structure There is no evidence of mitral valve prolapse. There is no mi tral valve stenosis. Doppler and Color-flow revealed mild mitral regurgitation. TRICUSPID VALVE The tricuspid valve is normal in structure Doppler and Color Flow revealed mild tricuspid regurgitati on. There is no pulmonary hypertension. The PA pressure was estimated at 32 mmHg. There is no tricusp id valve prolapse or vegetation. There is no tricuspid valve stenosis. PULMONIC VALVE The pulmonary valve is normal in structure Doppler and Color Flow revealed trace to mild pulmonic prince vular regurgitation. There is no pulmonic valvular stenosis. GREAT VESSELS Aortic Sinus is borderline dilated. The ascending aorta is 3.8cm The IVC is normal in size and collap ses >50% with inspiration. PERICARDIAL EFFUSION There is no pleural effusion. There is no evidence of significant pericardial effusion. Critical Notification Critical Value: No <Conclusion> The left ventricular systolic function is normal and the ejection fraction is within normal range. LV EF of 60% The left atrium is measured at 5.1cm. dilated. The right atrium size is normal. The aortic valve is normal in structure and function. Doppler and Color-flow revealed mild mitral regurgitation. Doppler and Color Flow revealed mild tricuspid regurgitation. There is no pulmonary hypertension. The PA pressure was estimated at 32 mmHg. Doppler and Color Flow revealed trace to mild pulmonic valvular regurgitation. The ascending aorta is 3.8cm There is no evidence of significant pericardial effusion. No thrombus seen in any of the chambers
--- NOTE | 2016-09-27 14:12 | PDOC1 ---
History and Physical Date of Admission Date of Admission DATE: 09/27/16 TIME: 14:05 Identification/Chief Complaint Chief Complaint Covering for Dr. Lasha Wharton Weakness and fall Problems: History of Present Illness History of Present Illness This patient is a 76-year-old gentleman that has been a long-time patient of Dr. Lasha Wharton'stephanie. He was out mowing his lawn when he started feeling weak and dizzy therefore he decided to go into his house. He did not improve and felt worse and fell down and he could not get up. 911 was called and he was brought to the emergency room. In the ER he was seen and examined and he was found to be alert and responsive but he had a period of about 10 minutes where he had 1 side weakness but no speech difficulty no loss of consciousness. The motor deficit improved after about 10 minutes and at the time that I saw him there was no residual motor deficit, he is a little limited due to to shoulder pain from a previous fracture. When I saw him he denied having any chest pains or shortness of breath. Past Medical History Cardiovascular: AFIB, CAD, HTN, [place], Syncope, Hyperlipidemia Pulmonary: Bronchitis GI: GERD Musculoskeletal: Osteoarthritis Current Problem List Problem List Problems Medical Problems: (1) Generalized weakness Status: Acute (2) Head injury Status: Acute (3) TIA (transient ischemic attack) Status: Acute (4) Unilateral weakness Status: Acute Problems: Current Medications Current Medications Current Medications Ondansetron HCl (Zofran) 4 mg PRN Q8HRS PRN IV NAUSEA/VOMITING; Start 09/26/16 at 16:00; Stop 09/27/16 at 15:59 Morphine Sulfate 2 mg PRN Q2HR PRN IV PAIN; Start 09/26/16 at 16:00; Stop 09/27 at 15:59 Albuterol/ Ipratropium (Duoneb) 3 ml RTQID NEB Last administered on 09/27/16 11:59; Start 09/26/16 at 16:00; Stop 09/27/16 at 15:59 Aspirin (Children'S Aspirin) 324 mg 1X ONCE PO Last administered on 09/26/16 16:32; Start 09/26/16 at 16:00; Stop 09/26/16 at 16:01; Status DC Pneumococcal Polyvalent Vaccine (Do NOT chart on this placeholder) 1 each 1X ONCE MC ; Start 09/26/16 at 19:00; Stop 09/26/16 at 19:01; Status UNV Pneumococcal Polyvalent Vaccine (Pneumovax 23) 0.5 ml ONCE ONCE VAX IM Last administered on 09/27/16 13:03; Start 09/27/16 at 09:00; Stop 09/27/16 at 09:01 ; Status DC Alprazolam (Xanax) 1 mg PRN Q6HRS PRN PO ANXIETY / AGITATION Last administered on 09/27/16 04:29; Start 09/26/16 at 21:00 Carvedilol (Coreg) 25 mg BIDWMEALS PO Last administered on 09/27/16 10:43; Start 09/27/16 at 08:00 Clopidogrel Bisulfate (Plavix) 75 mg DAILY PO Last administered on 09/27/16 10 :43; Start 09/27/16 at 09:00 Furosemide (Lasix) 20 mg DAILY PO Last administered on 09/27/16 10:44; Start 09/27/16 at 09:00 Nitroglycerin (Nitrostat) 0.4 mg PRN Q5MIN PRN SL CHEST PAIN; Start 09/26/16 at 21:00 Oxycodone HCl (Roxicodone) 10 mg PRN Q6HRS PRN PO PAIN Last administered on 10:44; Start 09/26/16 at 21:15 Lisinopril (Prinivil) 10 mg DAILY PO Last administered on 09/27/16 10:44; Start 09/27/16 at 09:00 Atorvastatin Calcium (Lipitor) 40 mg QHS PO Last administered on 09/26/16 21: 24; Start 09/26/16 at 21:00 Active Scripts Active Reported NITROGLYCERIN SubLingual (Nitroglycerin) 0.4 Mg Tab.subl 0.4 Mg SL PRN Q5MIN PRN Alprazolam 1 Mg Tablet 1 Mg PO PRN Q6HRS PRN Oxycodone Hcl 10 Mg Tablet 1 Tab PO PRN Q6HRS PRN Aspirin 81 Mg Tab.chew 1 Tab PO DAILY Paroxetine Hcl 10 Mg Tablet 10 Mg PO DAILY Ramipril 5 Mg Capsule 1 Cap PO DAILY Furosemide 20 Mg Tablet 1 Tab PO DAILY Crestor (Rosuvastatin Calcium) 10 Mg Tablet 10 Mg PO HS Clopidogrel (Clopidogrel Bisulfate) 75 Mg Tablet 75 Mg PO DAILY Carvedilol 12.5 Mg Tablet 2 Tab PO BID Allergies Allergies: Coded Allergies: acetaminophen (Verified Allergy, Intermediate, 10/16/15) ELEVATED LIVER ENZYMES Physical Exam General: Alert, Oriented X3, Cooperative, No acute distress HEENT: PERRLA, Mucous membr. moist/pink Lungs: Clear to auscultation Heart: S1S2, RRR, no rubs, no gallops, no murmurs Abdomen: Normal bowel sounds, Soft, No tenderness Extremities: No edema, Normal pulses Neuro: Normal speech, Strength at 5/5 X4 ext, Normal tone, Cranial nerves 3-12 NL, Reflexes 2+ Psych/Mental Status: Mental status NL Vitals Vitals Vital Signs Date Time Temp Pulse Resp B/P (MAP) Pulse Ox O2 Delivery O2 Flow Rate FiO2 09/27/16 10:44 70 135/67 09/27/16 10:39 96.3 18 97 Room Air 96.3 09/27/16 08:00 1.0 Labs Labs Laboratory Tests Test 09/26/16 14:45 09/26/16 15:35 09/26/16 15:53 09/26/16 22:00 White Blood Count 7.9 x10^3/uL (4.0-11.0) Red Blood Count 5.08 x10^6/uL (4.30-5.70) Hemoglobin 15.3 g/dL (13.0-17.5) Hematocrit 46.0 % (39.0-53.0) Mean Corpuscular Volume 91 fL (79-100) Mean Corpuscular Hemoglobin 30 pg (25-35) Mean Corpuscular Hemoglobin Concent 33 g/dL (31-37) Red Cell Distribution Width 14.0 % (11.5-14.5) Platelet Count 198 x10^3/uL (140-400) Neutrophils (%) (Auto) 69 % (31-73) Lymphocytes (%) (Auto) 19 % (24-48) Monocytes (%) (Auto) 10 % (0-9) Eosinophils (%) (Auto) 2 % (0-3) Basophils (%) (Auto) 0 % (0-3) Neutrophils # (Auto) 5.5 x10^3uL (1.8-7.7) Lymphocytes # (Auto) 1.5 x10^3/uL (1.0-4.8) Monocytes # (Auto) 0.8 x10^3/uL (0.0-1.1) Eosinophils # (Auto) 0.2 x10^3/uL (0.0-0.7) Basophils # (Auto) 0.0 x10^3/uL (0.0-0.2) Sodium Level 139 mmol/L (136-145) Potassium Level 3.7 mmol/L (3.5-5.1) Chloride Level 100 mmol/L (98-107) Carbon Dioxide Level 30 mmol/L (21-32) Anion Gap 9 (6-14) Blood Urea Nitrogen 16 mg/dL (8-26) Creatinine 1.4 mg/dL (0.7-1.3) Estimated GFR (Cockcroft-Gault) 49.1 BUN/Creatinine Ratio 11 (6-20) Glucose Level 126 mg/dL (70-99) Calcium Level 9.2 mg/dL (8.5-10.1) Total Bilirubin 0.7 mg/dL (0.2-1.0) Aspartate Amino Transf (AST/SGOT) 49 U/L (15-37) Alanine Aminotransferase (ALT/SGPT) 53 U/L (16-63) Alkaline Phosphatase 119 U/L (46-116) Troponin I Quantitative < 0.017 ng/mL (0.000-0.055) < 0.017 ng/mL (0.000-0.055) ZT-Bnd-W-Type Natriuretic Peptide 845 pg/mL (0-449) Total Protein 7.2 g/dL (6.4-8.2) Albumin 3.7 g/dL (3.4-5.0) Albumin/Globulin Ratio 1.1 (1.0-1.7) Lactic Acid Level 2.0 mmol/L (0.4-2.0) Urine Collection Type Unknown Urine Color Dk yellow Urine Clarity Hazy Urine pH 5.0 Urine Specific [place] 1.020 Urine Protein Negative mg/dL (NEG-TRACE) Urine Glucose (UA) Negative mg/dL (NEG) Urine Ketones (Stick) Negative mg/dL (NEG) Urine Blood Negative (NEG) Urine Nitrite Negative (NEG) Urine Bilirubin Small (NEG) Urine Urobilinogen Dipstick 1.0 mg/dL (0.2 mg/dL) Urine Leukocyte Esterase Trace (NEG) Urine RBC 0 /HPF (0-2) Urine WBC Occ /HPF (0-4) Urine Squamous Epithelial Cells Occ /LPF Urine Bacteria 0 /HPF (0-FEW) Urine Hyaline Casts Many /HPF Urine Mucus Marked /LPF Urine Opiates Screen Pos (NEG) Urine Methadone Screen Neg (NEG) Urine Barbiturates Neg (NEG) Urine Phencyclidine Screen Neg (NEG) Urine Amphetamine/Methamphetamine Neg (NEG) Urine Benzodiazepines Screen Pos (NEG) Urine Cocaine Screen Neg (NEG) Urine Cannabinoids Screen Neg (NEG) Urine Ethyl Alcohol Neg (NEG) Test 09/27/16 04:00 White Blood Count 6.2 x10^3/uL (4.0-11.0) Red Blood Count 5.15 x10^6/uL (4.30-5.70) Hemoglobin 15.4 g/dL (13.0-17.5) Hematocrit 47.0 % (39.0-53.0) Mean Corpuscular Volume 91 fL (79-100) Mean Corpuscular Hemoglobin 30 pg (25-35) Mean Corpuscular Hemoglobin Concent 33 g/dL (31-37) Red Cell Distribution Width 14.0 % (11.5-14.5) Platelet Count 161 x10^3/uL (140-400) Neutrophils (%) (Auto) 57 % (31-73) Lymphocytes (%) (Auto) 31 % (24-48) Monocytes (%) (Auto) 9 % (0-9) Eosinophils (%) (Auto) 4 % (0-3) Basophils (%) (Auto) 0 % (0-3) Neutrophils # (Auto) 3.5 x10^3uL (1.8-7.7) Lymphocytes # (Auto) 1.9 x10^3/uL (1.0-4.8) Monocytes # (Auto) 0.5 x10^3/uL (0.0-1.1) Eosinophils # (Auto) 0.2 x10^3/uL (0.0-0.7) Basophils # (Auto) 0.0 x10^3/uL (0.0-0.2) Sodium Level 139 mmol/L (136-145) Potassium Level 4.0 mmol/L (3.5-5.1) Chloride Level 100 mmol/L (98-107) Carbon Dioxide Level 32 mmol/L (21-32) Anion Gap 7 (6-14) Blood Urea Nitrogen 14 mg/dL (8-26) Creatinine 1.2 mg/dL (0.7-1.3) Estimated GFR (Cockcroft-Gault) 58.7 Glucose Level 69 mg/dL (70-99) Calcium Level 9.3 mg/dL (8.5-10.1) Troponin I Quantitative < 0.017 ng/mL (0.000-0.055) Triglycerides Level 95 mg/dL (0-150) Cholesterol Level 117 mg/dL (0-200) LDL Cholesterol, Calculated 49 mg/dL (0-100) VLDL Cholesterol, Calculated 19 mg/dL (0-40) Non-HDL Cholesterol Calculated 68 mg/dL (0-129) HDL Cholesterol 49 mg/dL (40-60) Cholesterol/HDL Ratio 2.4 Laboratory Tests Test 09/26/16 14:45 09/26/16 15:35 09/26/16 15:53 09/26/16 22:00 White Blood Count 7.9 x10^3/uL (4.0-11.0) Red Blood Count 5.08 x10^6/uL (4.30-5.70) Hemoglobin 15.3 g/dL (13.0-17.5) Hematocrit 46.0 % (39.0-53.0) Mean Corpuscular Volume 91 fL (79-100) Mean Corpuscular Hemoglobin 30 pg (25-35) Mean Corpuscular Hemoglobin Concent 33 g/dL (31-37) Red Cell Distribution Width 14.0 % (11.5-14.5) Platelet Count 198 x10^3/uL (140-400) Neutrophils (%) (Auto) 69 % (31-73) Lymphocytes (%) (Auto) 19 % (24-48) Monocytes (%) (Auto) 10 % (0-9) Eosinophils (%) (Auto) 2 % (0-3) Basophils (%) (Auto) 0 % (0-3) Neutrophils # (Auto) 5.5 x10^3uL (1.8-7.7) Lymphocytes # (Auto) 1.5 x10^3/uL (1.0-4.8) Monocytes # (Auto) 0.8 x10^3/uL (0.0-1.1) Eosinophils # (Auto) 0.2 x10^3/uL (0.0-0.7) Basophils # (Auto) 0.0 x10^3/uL (0.0-0.2) Sodium Level 139 mmol/L (136-145) Potassium Level 3.7 mmol/L (3.5-5.1) Chloride Level 100 mmol/L (98-107) Carbon Dioxide Level 30 mmol/L (21-32) Anion Gap 9 (6-14) Blood Urea Nitrogen 16 mg/dL (8-26) Creatinine 1.4 mg/dL (0.7-1.3) Estimated GFR (Cockcroft-Gault) 49.1 BUN/Creatinine Ratio 11 (6-20) Glucose Level 126 mg/dL (70-99) Calcium Level 9.2 mg/dL (8.5-10.1) Total Bilirubin 0.7 mg/dL (0.2-1.0) Aspartate Amino Transf (AST/SGOT) 49 U/L (15-37) Alanine Aminotransferase (ALT/SGPT) 53 U/L (16-63) Alkaline Phosphatase 119 U/L (46-116) Troponin I Quantitative < 0.017 ng/mL (0.000-0.055) < 0.017 ng/mL (0.000-0.055) DI-Ols-A-Type Natriuretic Peptide 845 pg/mL (0-449) Total Protein 7.2 g/dL (6.4-8.2) Albumin 3.7 g/dL (3.4-5.0) Albumin/Globulin Ratio 1.1 (1.0-1.7) Lactic Acid Level 2.0 mmol/L (0.4-2.0) Urine Collection Type Unknown Urine Color Dk yellow Urine Clarity Hazy Urine pH 5.0 Urine Specific [place] 1.020 Urine Protein Negative mg/dL (NEG-TRACE) Urine Glucose (UA) Negative mg/dL (NEG) Urine Ketones (Stick) Negative mg/dL (NEG) Urine Blood Negative (NEG) Urine Nitrite Negative (NEG) Urine Bilirubin Small (NEG) Urine Urobilinogen Dipstick 1.0 mg/dL (0.2 mg/dL) Urine Leukocyte Esterase Trace (NEG) Urine RBC 0 /HPF (0-2) Urine WBC Occ /HPF (0-4) Urine Squamous Epithelial Cells Occ /LPF Urine Bacteria 0 /HPF (0-FEW) Urine Hyaline Casts Many /HPF Urine Mucus Marked /LPF Urine Opiates Screen Pos (NEG) Urine Methadone Screen Neg (NEG) Urine Barbiturates Neg (NEG) Urine Phencyclidine Screen Neg (NEG) Urine Amphetamine/Methamphetamine Neg (NEG) Urine Benzodiazepines Screen Pos (NEG) Urine Cocaine Screen Neg (NEG) Urine Cannabinoids Screen Neg (NEG) Urine Ethyl Alcohol Neg (NEG) Test 09/27/16 04:00 White Blood Count 6.2 x10^3/uL (4.0-11.0) Red Blood Count 5.15 x10^6/uL (4.30-5.70) Hemoglobin 15.4 g/dL (13.0-17.5) Hematocrit 47.0 % (39.0-53.0) Mean Corpuscular Volume 91 fL (79-100) Mean Corpuscular Hemoglobin 30 pg (25-35) Mean Corpuscular Hemoglobin Concent 33 g/dL (31-37) Red Cell Distribution Width 14.0 % (11.5-14.5) Platelet Count 161 x10^3/uL (140-400) Neutrophils (%) (Auto) 57 % (31-73) Lymphocytes (%) (Auto) 31 % (24-48) Monocytes (%) (Auto) 9 % (0-9) Eosinophils (%) (Auto) 4 % (0-3) Basophils (%) (Auto) 0 % (0-3) Neutrophils # (Auto) 3.5 x10^3uL (1.8-7.7) Lymphocytes # (Auto) 1.9 x10^3/uL (1.0-4.8) Monocytes # (Auto) 0.5 x10^3/uL (0.0-1.1) Eosinophils # (Auto) 0.2 x10^3/uL (0.0-0.7) Basophils # (Auto) 0.0 x10^3/uL (0.0-0.2) Sodium Level 139 mmol/L (136-145) Potassium Level 4.0 mmol/L (3.5-5.1) Chloride Level 100 mmol/L (98-107) Carbon Dioxide Level 32 mmol/L (21-32) Anion Gap 7 (6-14) Blood Urea Nitrogen 14 mg/dL (8-26) Creatinine 1.2 mg/dL (0.7-1.3) Estimated GFR (Cockcroft-Gault) 58.7 Glucose Level 69 mg/dL (70-99) Calcium Level 9.3 mg/dL (8.5-10.1) Troponin I Quantitative < 0.017 ng/mL (0.000-0.055) Triglycerides Level 95 mg/dL (0-150) Cholesterol Level 117 mg/dL (0-200) LDL Cholesterol, Calculated 49 mg/dL (0-100) VLDL Cholesterol, Calculated 19 mg/dL (0-40) Non-HDL Cholesterol Calculated 68 mg/dL (0-129) HDL Cholesterol 49 mg/dL (40-60) Cholesterol/HDL Ratio 2.4 VTE Prophylaxis Ordered VTE Prophylaxis Devices: Yes VTE Pharmacological Prophylaxi: No Assessment/Plan Assessment/Plan This patient comes in with what appears to be a TIA. We will consult neurology to evaluate this event. I am going to cover her until COURTNEY You MD Sep 27, 2016 14:12
[2016-09-27 15:09] VITALS: BP 95/59
== END 2016-09-27 16:51 | disposition home or self-care (01) ==
LOC: ER 14:19 → 6 SOUTH 16:06
PROVIDERS: ADMIT Specialist; ATTEND Specialist
DX: R53.1 Weakness (principal); I25.10 Atherosclerotic heart disease of native coronary artery without angina pectoris; E78.5 Hyperlipidemia, unspecified; I48.91 Unspecified atrial fibrillation; S09.90XA Unspecified injury of head, initial encounter; I25.2 Old myocardial infarction; K21.9 Gastro-esophageal reflux disease without esophagitis; M19.90 Unspecified osteoarthritis, unspecified site; I11.0 Hypertensive heart disease with heart failure; I50.9 Heart failure, unspecified; R09.02 Hypoxemia; X58.XXXA Exposure to other specified factors, initial encounter; Y93.89 Activity, other specified; Y92.89 Other specified places as the place of occurrence of the external cause; Y99.8 Other external cause status; Z23 Encounter for immunization; Z95.5 Presence of coronary angioplasty implant and graft; Z90.49 Acquired absence of other specified parts of digestive tract
CPT/HCPCS: 36415; 70450; 71010; 72125; 80048; 80053; 80061; 80307; 81001; 83605; 83880; 84484; 85027; 87086; 90471; 90732; 93005; 93880; 94250; 94640; 94760; 99285; C8929; G0378; J7620; G0379; G0479

== ENCOUNTER 2016-12-04 05:48 | Inpatient (IN) | payer OTHER ==
[~2016-12-04] VITALS: Ht 182.9 cm; Wt 121.3 kg
[2016-12-04] VITALS (7 sets, daily range): BP systolic 90–119; BP diastolic 42–67
[~2016-12-04 05:48] MED LIST changes: +ALPR1TAB6 PO; +NITR0.4T22 SL; +OXYC10TA PO
[2016-12-04 06:20] LABS: BASO # 0.1 x10^3/uL (0.0-0.2); BASO % 1 % (0-3); EOS % 4 % (0-3); HEMATOCRIT 26.8 % (39.0-53.0); LYMPH # 2.7 x10^3/uL (1.0-4.8); LYMPH % 26 % (24-48); MEAN CORPUSCULAR HEMOGLOBIN 31 pg (25-35); MEAN CORPUSCULAR HGB CONC 34 g/dL (31-37); MEAN CORPUSCULAR VOLUME 91 fL (79-100); MONO % 10 % (0-9); NEUT % 60 % (31-73); PLATELET COUNT 239 x10^3/uL (140-400); RED BLOOD COUNT 2.94 x10^6/uL (4.30-5.70); WHITE BLOOD COUNT 10.4 x10^3/uL (4.0-11.0)
[2016-12-04 06:27] LABS: CREATININE 1.2 mg/dL (0.7-1.3); GFR 58.7; POTASSIUM 3.4 mmol/L (3.5-5.1)
[2016-12-04] MEDS ORDERED: IV NORMAL SALINE 500ML BAG 500 ML IV ONE (06:30)
[2016-12-04] MEDS ORDERED: ONDANSETRON PF 4 MG/2 ML VIAL. IV ONE (06:30)
[2016-12-04 06:32] LABS: ALBUMIN 3.1 g/dL (3.4-5.0); ALBUMIN/GLOBULIN RATIO 1.2 (1.0-1.7); MAGNESIUM 2.2 mg/dL (1.8-2.4); TOTAL BILIRUBIN 0.3 mg/dL (0.2-1.0); TOTAL PROTEIN 5.7 g/dL (6.4-8.2)
[2016-12-04 06:33] LABS: INR 1.1 (0.8-1.1); PROTHROMBIN TIME PATIENT 13.1 SEC (11.7-14.0)
--- NOTE | 2016-12-04 06:48 | EKG ---
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
--- NOTE | 2016-12-04 07:13 | RAD ---
Portable chest, 12/04/2016: History: Shortness of breath, near syncope. Comparison is made to a study from 09/26/2016. The heart is at the upper limits of normal in size. The pulmonary vascularity is normal. A density projected over the right hilum is probably a vascular structure. There are prominent epicardial fat pads. No acute infiltrate is seen. There is no evidence of pleural fluid. IMPRESSION: No acute cardiopulmonary abnormality is detected.
--- NOTE | 2016-12-04 07:16 | RAD ---
CT of the head without contrast, 12/04/2016: History: Dizziness Comparison is made to a study from 09/26/2016. There is mild cerebral atrophy. There are mild deep white matter lucencies bilaterally compatible with chronic ischemic change. The ventricles are mildly prominent on a compensatory basis. There is no shift of the midline structures. There is no evidence of acute intracranial hemorrhage or mass effect. IMPRESSION: 1. Chronic findings as described above. 2. No acute intracranial abnormality is detected. PQRS Compliance Statement: One or more of the following individualized dose reduction techniques were utilized for this examination: 1. Automated exposure control 2. Adjustment of the mA and/or kV according to patient size 3. Use of iterative reconstruction technique
--- NOTE | 2016-12-04 07:35 | PHYS DOC ---
Past Medical History Past Medical History: A-Fib, CHF, Hypertension, [place] Additional Past Medical Histor: HYPOGLYCEMIA Past Surgical History: Cholecystectomy Additional Past Surgical Histo: 12 STENTS Alcohol Use: None Drug Use: None Adult General Chief Complaint Chief Complaint: NEAR SYNCOPE HPI HPI Patient is a 76 year old male who presents with sensation of near syncope. Pt awoke at 3am and felt like he needed to eat something and "just didn't feel right". He then felt dizzy like the room was spinning and that he could pass out. This was followed by vomiting "all of my food from last night", no reports of blood or bile in the vomit. He reports increasing exertional dyspnea but denies significant orthopnea and hasn't noticed increased lower extremity edema. PCP is Dr. Warner. Yesterday he was feeling well with exception of the shortness of breath. Pt reports recent treatment of left cheek abscess with 2 antibiotics. He took 1 day of the meds and then stopped because "I got so sick from that medicine". PCP is Dr. Warner Review of Systems Review of Systems Constitutional: Denies fever or chills [] Eyes: Denies change in visual acuity, redness, or eye pain [] HENT: Denies nasal congestion or sore throat [] Respiratory: Denies cough or shortness of breath [] Cardiovascular: denies chest pain GI: Denies abdominal pain, bloody stools or diarrhea [] : Denies dysuria or hematuria [] Musculoskeletal: Denies back pain or joint pain [] Integument: Denies rash or skin lesions [] Neurologic: Denies headache, focal weakness or sensory changes [] Current Medications Current Medications Current Medications Medications (Trade) Dose Ordered Sig/Radha Start Time Stop Time Status Last Admin Dose Admin Ondansetron HCl (Zofran) 4 mg 1X ONCE 12/04/16 06:30 12/04/16 06:31 DC 12/04/16 06:37 4 MG Pantoprazole Sodium 80 mg/ Sodium Chloride 100 ml @ 10 mls/hr 1X ONCE 12/04/16 07:45 12/04/16 17:44 UNV Sodium Chloride 500 ml @ 500 mls/hr 1X ONCE 12/04/16 06:30 12/04/16 07:29 DC 12/04/16 06:36 500 MLS/HR Allergies Allergies Physical Exam Physical Exam Constitutional: Well developed, well nourished, no acute distress, non-toxic appearance. [] HENT: Normocephalic, atraumatic, bilateral external ears normal, oropharynx dry , no oral exudates, nose normal. pinpoint area of cheek with small pus drainage but no significant surrounding erythema and no fluctuance, no significant ttp Eyes: PERRLA, EOMI, conjunctiva normal, no discharge. [] Neck: Normal range of motion, no tenderness, supple, no stridor. [] Cardiovascular:Heart rate regular with irregular rhythm, no murmur [] Lungs & Thorax: Bilateral breath sounds clear to auscultation, no wheeze or crackles Abdomen: Bowel sounds normal, soft, no tenderness, no masses, no pulsatile masses. [] Skin: Warm, dry, no erythema, no rash. [] Back: No tenderness, no CVA tenderness. [] Extremities: No tenderness, no cyanosis, no clubbing, ROM intact, 1+ bilateral LE edema Neurologic: Alert and oriented X 3, normal motor function, normal sensory function, no focal deficits noted. [] Psychologic: Affect normal, judgement normal, mood normal. [] Current Patient Data Vital Signs Vital Signs Date Time Temp Pulse Resp B/P (MAP) Pulse Ox O2 Delivery O2 Flow Rate FiO2 12/04/16 07:30 72 93 12/04/16 07:00 104/53 (70) 12/04/16 06:03 98.2 16 Room Air 98.2 Lab Values Laboratory Tests Test 12/04/16 06:01 12/04/16 07:45 White Blood Count 10.4 x10^3/uL (4.0-11.0) Red Blood Count 2.94 x10^6/uL (4.30-5.70) L Hemoglobin 9.0 g/dL (13.0-17.5) L Hematocrit 26.8 % (39.0-53.0) L Mean Corpuscular Volume 91 fL (79-100) Mean Corpuscular Hemoglobin 31 pg (25-35) Mean Corpuscular Hemoglobin Concent 34 g/dL (31-37) Red Cell Distribution Width 15.0 % (11.5-14.5) H Platelet Count 239 x10^3/uL (140-400) Neutrophils (%) (Auto) 60 % (31-73) Lymphocytes (%) (Auto) 26 % (24-48) Monocytes (%) (Auto) 10 % (0-9) H Eosinophils (%) (Auto) 4 % (0-3) H Basophils (%) (Auto) 1 % (0-3) Neutrophils # (Auto) 6.2 x10^3uL (1.8-7.7) Lymphocytes # (Auto) 2.7 x10^3/uL (1.0-4.8) Monocytes # (Auto) 1.0 x10^3/uL (0.0-1.1) Eosinophils # (Auto) 0.4 x10^3/uL (0.0-0.7) Basophils # (Auto) 0.1 x10^3/uL (0.0-0.2) Segmented Neutrophils % 54 % (35-66) Band Neutrophils % 1 % (0-9) Lymphocytes % 31 % (24-48) Monocytes % 8 % (0-10) Eosinophils % 6 % (0-5) H Platelet Estimate Adequate (ADEQUATE) Prothrombin Time 13.1 SEC (11.7-14.0) Prothrombin Time INR 1.1 (0.8-1.1) Sodium Level 135 mmol/L (136-145) L Potassium Level 3.4 mmol/L (3.5-5.1) L Chloride Level 96 mmol/L (98-107) L Carbon Dioxide Level 32 mmol/L (21-32) Anion Gap 7 (6-14) Blood Urea Nitrogen 14 mg/dL (8-26) Creatinine 1.2 mg/dL (0.7-1.3) Estimated GFR (Cockcroft-Gault) 58.7 BUN/Creatinine Ratio 12 (6-20) Glucose Level 155 mg/dL (70-99) H Calcium Level 8.0 mg/dL (8.5-10.1) L Magnesium Level 2.2 mg/dL (1.8-2.4) Total Bilirubin 0.3 mg/dL (0.2-1.0) Aspartate Amino Transferase (AST) 19 U/L (15-37) Alanine Aminotransferase (ALT) 21 U/L (16-63) Alkaline Phosphatase 106 U/L (46-116) Troponin I Quantitative < 0.017 ng/mL (0.000-0.055) KA-Wot-E-Type Natriuretic Peptide 1160 pg/mL (0-449) H Total Protein 5.7 g/dL (6.4-8.2) L Albumin 3.1 g/dL (3.4-5.0) L Albumin/Globulin Ratio 1.2 (1.0-1.7) Stool Occult Blood Positive (NEG) Laboratory Tests 12/04/16 06:01 Laboratory Tests 12/04/16 06:01 EKG EKG 82 bpm, A. fib, normal axis, QTC of 480, no ST elevation or depression, nonischemic T waves, interpreted by me[] Radiology/Procedures Radiology/Procedures CT head: IMPRESSION: 1. Chronic findings as described above. 2. No acute intracranial abnormality is detected. CXR: No acute cardiopulmonary abnormality detected per radiology[] Course & Med Decision Making Course & Med Decision Making Pertinent Labs and Imaging studies reviewed. (See chart for details) []Pt given medication, pt states he doesn't feel better. New anemia and pt's fecal occult + for blood. IV protonix ordered. I contacted Dr. Warner who accepted pt admission.GI consult placed Dragon Disclaimer Dragon Disclaimer This electronic medical record was generated, in whole or in part, using a voice recognition dictation system. Departure Departure Impression: Primary Impression: GI bleed Disposition: ADMITTED INPATIENT Admitting Physician: Other Condition: STABLE Referrals: COLLINS WARNER MD (PCP) Scripts Pantoprazole Sodium (PROTONIX) 40 Mg Tablet. 40 MG PO BID for 30 Days, #60 TAB Prov: COLLINS WARNER MD 12/06/16 DON MCCORMACK MD Dec 04, 2016 07:35
[2016-12-04] MEDS ORDERED: PANTOPRAZOLE SODIUM IV DRIP 80 MG in IV NORMAL SALINE 100ML 100 ML IV ONE (07:45)
[2016-12-04] MEDS ORDERED: oxyCODONE IR 5 MG TABLET PO ONE (08:00)
[2016-12-04 08:11] LABS: NEG OBC FOB NEG; POS OBC FOB POS
[2016-12-04] MEDS: PANTOPRAZOLE SODIUM IV DRIP 80 MG in IV NORMAL SALINE 100ML 100 ML IV SCH ×2 (08:11→22:29)
[2016-12-04] MEDS ORDERED: ONDANSETRON PF 4 MG/2 ML VIAL. IV PRN (08:15)
[2016-12-04 09:19] LABS: % EOS 6 % (0-5); PLT ESTIMATE ADEQUATE (ADEQUATE)
--- NOTE | 2016-12-04 09:42 | PDOC2 ---
GI CONSULT Reason For Consult: GI Bleed HPI: HPI: 76 y/o male seen in the ER. Awoke at 3:00 feeling "sick to my stomach." Vomited everything he ate last night, felt very dizzy and had to hang on to the wall. Also some SOA. In ER, found w/ Hgb of 9 compared to 15 earlier this year (on several occasions) which prompted fecal occult which was positive. Additional labs include BUN 14, Cr 1.2, INR 1.1, plt 239, BNP >1100. Denies hematemesis, hematochezia, melena although awhile ago had a stool that looked "light red." No abd pain. No diarrhea or constipation. No reflux, heartburn, or dysphagia. No change in appetite or weight loss. Colonoscopy with Dr. Wes Lafleur in 2002; no procedure report available but pathology shows one adenoma and hyperplastic polyps. Had EGD before that, recalls no significant findings. On ASA and Plavix, no NSAIDs. Treated w/ two antibiotics recently for cheek abscess, didn't complete course because made him sick. Some hypotension in ER (93/50s when I spoke w/ him). Started on PPI drip, kept NPO - he complains a few times of dry mouth. PMH: PMH: CHF, CAD s/p stents, A Fib, MIs, HTN, anxiety/depression, removal of back cyst, cholecystectomy FH: Family History: No pertinent hx Social History: Smoke: No ALCOHOL: none ROS: GEN: Denies fevers, chills, sweats HEENT: +dry mouth CV: Denies chest pain RESP: +SOA GI: Per HPI : Denies hematuria, dysuria ENDO: Denies weight changes NEURO: +dizziness MSK: +weakness SKIN: Denies jaundice, pruritus Vitals: Vitals: Vital Signs Date Time Temp Pulse Resp B/P (MAP) Pulse Ox O2 Delivery O2 Flow Rate FiO2 12/04/16 08:45 82 102/65 (77) 12/04/16 08:11 16 12/04/16 07:30 93 12/04/16 06:03 98.2 Room Air 98.2 Labs: Labs: Laboratory Tests Test 12/04/16 06:01 12/04/16 07:45 White Blood Count 10.4 x10^3/uL (4.0-11.0) Red Blood Count 2.94 x10^6/uL (4.30-5.70) Hemoglobin 9.0 g/dL (13.0-17.5) Hematocrit 26.8 % (39.0-53.0) Mean Corpuscular Volume 91 fL (79-100) Mean Corpuscular Hemoglobin 31 pg (25-35) Mean Corpuscular Hemoglobin Concent 34 g/dL (31-37) Red Cell Distribution Width 15.0 % (11.5-14.5) Platelet Count 239 x10^3/uL (140-400) Neutrophils (%) (Auto) 60 % (31-73) Lymphocytes (%) (Auto) 26 % (24-48) Monocytes (%) (Auto) 10 % (0-9) Eosinophils (%) (Auto) 4 % (0-3) Basophils (%) (Auto) 1 % (0-3) Neutrophils # (Auto) 6.2 x10^3uL (1.8-7.7) Lymphocytes # (Auto) 2.7 x10^3/uL (1.0-4.8) Monocytes # (Auto) 1.0 x10^3/uL (0.0-1.1) Eosinophils # (Auto) 0.4 x10^3/uL (0.0-0.7) Basophils # (Auto) 0.1 x10^3/uL (0.0-0.2) Segmented Neutrophils % 54 % (35-66) Band Neutrophils % 1 % (0-9) Lymphocytes % 31 % (24-48) Monocytes % 8 % (0-10) Eosinophils % 6 % (0-5) Platelet Estimate Adequate (ADEQUATE) Prothrombin Time 13.1 SEC (11.7-14.0) Prothromb Time International Ratio 1.1 (0.8-1.1) Sodium Level 135 mmol/L (136-145) Potassium Level 3.4 mmol/L (3.5-5.1) Chloride Level 96 mmol/L (98-107) Carbon Dioxide Level 32 mmol/L (21-32) Anion Gap 7 (6-14) Blood Urea Nitrogen 14 mg/dL (8-26) Creatinine 1.2 mg/dL (0.7-1.3) Estimated GFR (Cockcroft-Gault) 58.7 BUN/Creatinine Ratio 12 (6-20) Glucose Level 155 mg/dL (70-99) Calcium Level 8.0 mg/dL (8.5-10.1) Magnesium Level 2.2 mg/dL (1.8-2.4) Total Bilirubin 0.3 mg/dL (0.2-1.0) Aspartate Amino Transf (AST/SGOT) 19 U/L (15-37) Alanine Aminotransferase (ALT/SGPT) 21 U/L (16-63) Alkaline Phosphatase 106 U/L (46-116) Troponin I Quantitative < 0.017 ng/mL (0.000-0.055) VT-Plf-S-Type Natriuretic Peptide 1160 pg/mL (0-449) Total Protein 5.7 g/dL (6.4-8.2) Albumin 3.1 g/dL (3.4-5.0) Albumin/Globulin Ratio 1.2 (1.0-1.7) Stool Occult Blood Positive (NEG) Allergies: Coded Allergies: acetaminophen (Verified Allergy, Intermediate, 10/16/15) ELEVATED LIVER ENZYMES Medications: Current Medications Medications (Trade) Dose Ordered Sig/Radha Route PRN Reason Start Time Stop Time Status Last Admin Dose Admin Sodium Chloride 500 ml @ 500 mls/hr 1X ONCE IV 12/04/16 06:30 12/04/16 07:29 DC 12/04/16 06:36 Ondansetron HCl (Zofran) 4 mg 1X ONCE IV 12/04/16 06:30 12/04/16 06:31 DC 12/04/16 06:37 Pantoprazole Sodium 80 mg/ Sodium Chloride 100 ml @ 10 mls/hr Q10H IV 12/04/16 08:00 12/04/16 08:11 Oxycodone HCl (Roxicodone) 5 mg 1X ONCE PO 12/04/16 08:00 12/04/16 08:01 DC 12/04/16 08:11 Imaging: Imaging: CXR IMPRESSION: No acute cardiopulmonary abnormality is detected. Head CT IMPRESSION: No acute intracranial abnormality is detected. Echo 08/2016 <Conclusion> The left ventricular systolic function is normal and the ejection fraction is within normal range. LV EF of 60% The left atrium is measured at 5.1cm. dilated. The right atrium size is normal. The aortic valve is normal in structure and function. Doppler and Color-flow revealed mild mitral regurgitation. Doppler and Color Flow revealed mild tricuspid regurgitation. There is no pulmonary hypertension. The PA pressure was estimated at 32 mmHg. Doppler and Color Flow revealed trace to mild pulmonic valvular regurgitation. The ascending aorta is 3.8cm There is no evidence of significant pericardial effusion. No thrombus seen in any of the chambers. PE: GEN: NAD HEENT: Atraumatic, PERRL LUNGS: CTAB anteriorly HEART: irregularly irregular ABD: NABS, S/NT, overweight EXTREMITY: No edema SKIN: No rashes, no jaundice NEURO/PSYCH: A & O 3 A/P: A/P: Near syncope/dizziness/weakness N/v -acute onset overnight Normocytic anemia, hemoccult positive stool -Hgb 9 compared to 15 earlier this year -denies overt bleeding -BUN 14 w/ Cr 1.2 CAD and A Fib on Plavix and ASA CRC screen, h/o adenomatous polyp -last colonoscopy 2002 -- Agree w/ PPI drip, NPO. Will review w/ Dr. Stephen re: need for EGD. TAMEKA BAIN Dec 04, 2016 09:42
[2016-12-04] MEDS ORDERED: PROPOFOL 20 ML IV ONE (11:20)
[2016-12-04] MEDS ORDERED: LIDOCAINE 2% PF Vial for OR 5 ML VIAL. ONE (11:20)
[2016-12-04] MEDS ORDERED: EPINEPHrine 1 MG/ML VIAL SQ ONE (11:35)
[2016-12-04] MEDS ORDERED: EPINEPHrine SYRINGE 1 MG/10 ML SYRINGE ONE (11:45)
--- NOTE | 2016-12-04 11:47 | PDOC4 ---
Operative Note Operative Note EGD with bx/therapeutic control of bleeding Meds propofol per anesthesia Pre-op dx acute blood loss anemia/n/v post-op dx non-erosive gastritis lesser curve ulcer s/p bx/epi injection/gold probe cautery Plan PPI therapy serial CBCs/transfuse prn hg <8 trial of liquids in am hold aspirin/plavix for 7 days . KANIKA WELLER MD Dec 04, 2016 11:47
[2016-12-04] MEDS ORDERED: IV RINGERS,LACTATED 1000ML 1,000 ML IV SCH (12:00)
[2016-12-04] MEDS: IV DEXTROSE 5% - 0.9 % NACL 1,000 ML IV SCH ×2 (15:08→22:32)
[2016-12-04] MEDS: ATORVASTATIN CALCIUM 20 MG TABLET PO SCH (22:28)
[2016-12-04] MEDS: oxyCODONE IR 5 MG TABLET PO PRN (22:29)
[2016-12-05 03:05] VITALS: BP 115/49
[2016-12-05] MEDS: PANTOPRAZOLE SODIUM IV DRIP 80 MG in IV NORMAL SALINE 100ML 100 ML IV SCH ×2 (04:00→09:40)
[2016-12-05 06:25] LABS: HEMATOCRIT 26.7 % (39.0-53.0); HEMOGLOBIN 8.9 g/dL (13.0-17.5); RED BLOOD COUNT 2.89 x10^6/uL (4.30-5.70); RED CELL DISTRIBUTION WIDTH 15.3 % (11.5-14.5); WHITE BLOOD COUNT 11.6 x10^3/uL (4.0-11.0)
[2016-12-05 07:30] VITALS: BP 97/43
[2016-12-05 10:30] VITALS: BP 107/54
[2016-12-05] MEDS: IV DEXTROSE 5% - 0.9 % NACL 1,000 ML IV SCH ×2 (11:00→21:20)
--- NOTE | 2016-12-05 12:20 | PDOC ---
Subjective: Subjective: No further bleed. Tolerating PO. Wants to go hoem today because he has no one to take him home tomorrow Objective: Vital Signs: Vital Signs Date Time Temp Pulse Resp B/P (MAP) Pulse Ox O2 Delivery O2 Flow Rate FiO2 12/05/16 10:30 96.6 85 18 107/54 (71) 98 Room Air 96.6 Labs: Laboratory Tests Test 12/04/16 14:13 12/04/16 20:20 12/05/16 04:30 Troponin I Quantitative < 0.017 ng/mL (0.000-0.055) < 0.017 ng/mL (0.000-0.055) White Blood Count 11.6 x10^3/uL (4.0-11.0) Red Blood Count 2.89 x10^6/uL (4.30-5.70) Hemoglobin 8.9 g/dL (13.0-17.5) Hematocrit 26.7 % (39.0-53.0) Mean Corpuscular Volume 92 fL (79-100) Mean Corpuscular Hemoglobin 31 pg (25-35) Mean Corpuscular Hemoglobin Concent 34 g/dL (31-37) Red Cell Distribution Width 15.3 % (11.5-14.5) Platelet Count 231 x10^3/uL (140-400) Thyroid Stimulating Hormone (TSH) 0.575 uIU/mL (0.358-3.74) Physical Exam: Physical Exam: GEN: NAD HEENT: Atraumatic, PERRL LUNGS: CTAB anteriorly HEART: irregularly irregular ABD: NABS, S/NT, overweight EXTREMITY: No edema SKIN: No rashes, no jaundice NEURO/PSYCH: A & O 3 Assessment & Plan: Assessment : 1) Anemia 2) non-erosive gastritis 3) lesser curve ulcer s/p bx/epi injection/gold probe cautery 4)PMH polyps Plan: Plan PPI therapy serial CBCs/transfuse prn hg <8 Advance diet hold aspirin/plavix for 7 days Recheck labs this afternoon. If Hgb stable, start BID PPI and can d/c with f/u with PCP for Hgb check this week Problems: KIANNA BANERJEE MD Dec 05, 2016 12:19
[2016-12-05] MEDS: oxyCODONE IR 5 MG TABLET PO PRN ×2 (13:32→19:32)
[2016-12-05 14:30] VITALS: BP 100/52
[2016-12-05 14:56] LABS: BASO % 0 % (0-3); EOS % 2 % (0-3); HEMATOCRIT 26.9 % (39.0-53.0); HEMOGLOBIN 8.9 g/dL (13.0-17.5); LYMPH # 1.2 x10^3/uL (1.0-4.8); LYMPH % 13 % (24-48); MEAN CORPUSCULAR HEMOGLOBIN 30 pg (25-35); MEAN CORPUSCULAR HGB CONC 33 g/dL (31-37); MEAN CORPUSCULAR VOLUME 92 fL (79-100); MONO % 10 % (0-9); NEUT % 75 % (31-73); PLATELET COUNT 232 x10^3/uL (140-400); RED BLOOD COUNT 2.93 x10^6/uL (4.30-5.70); RED CELL DISTRIBUTION WIDTH 15.3 % (11.5-14.5); WHITE BLOOD COUNT 8.9 x10^3/uL (4.0-11.0)
[2016-12-05] MEDS: PANTOPRAZOLE 40 MG TABLET.DR. PO SCH (16:20)
--- NOTE | 2016-12-05 16:53 | PDOC ---
Provider Note Provider Note Hgb. is stable and he is tolerating liquids well Remains in atrial fibrillation with a controlled ventricular response He heeds further workup for the A. fib but it can be done as an outpatient Will dischargw tomorrow if OK with GI. COLLINS WARNER MD Dec 05, 2016 16:53
[2016-12-05] MEDS: ALPRAZolam 1 MG TABLET PO PRN (19:30)
[2016-12-05 19:58] VITALS: BP 122/54
--- NOTE | 2016-12-05 20:18 | HP ---
ADMIT DATE: 12/04/2016 HISTORY OF PRESENT ILLNESS: This patient was hospitalized on 12/04/2016. I saw him at 7:00 p.m. on 12/04/2016. This is a 76-year-old white male who had a syncopal episode at home. He thus came into the emergency room. In the emergency room, his hemoglobin was down to 9 grams percent. He had recently been hospitalized about a month ago at which time it was 15 grams percent. He gave no history of hemoptysis. There is no history of hematochezia or melena. He says he has good vision. However, he saw on blood. About a week ago, he had seen me in the office with what appeared to be an infected sebaceous cyst. At that time, he had an area of erythema on his left cheek. There was an open area with what appeared to be purulent material. A culture was sent and it later turned out to be negative. When we tried to extract more pus, the nurse did get a solid chunk. It was sent to pathology and we have not had any results from it. However, the purulent material that was sent for culture came back as no growth. The patient was given Keflex and Bactrim before we knew about the culture. He said he took it for 1 day and then got deadly sick. He said he had abdominal pain and had to be in bed for 2-3 days. He did not inform us at that time. He did say that he expected some more yellow material from his cheek. It now seems to have healed. He gives no history of peptic ulcer in the past. He is not under any stress. In the emergency room, he was noted to be in atrial fibrillation. However, last month an EKG that was taken showed sinus rhythm. Also, he had an echocardiogram done last month, which showed normal systolic and diastolic function of the left ventricle. The left atrium was enlarged. I first saw this patient in November 2015 when he was referred to me by Franklyn. He had been to [facility]. I do have some of the reports from them. They do say something about him being in permanent atrial fibrillation and they wanted him to be on Xarelto, but I did not see any evidence of him taking Xarelto when he came in. He was taking narcotics. 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 He also had dislocation of his left shoulder. He gives no history of myocardial infarction. However, he says that he has occasional chest pain and he had been given nitroglycerin at one time and he takes it. He has had no chest pain recently. He has had no shortness of breath. He has had no palpitations. SOCIAL HISTORY: He does not smoke or drink. MEDICATIONS: His present medications are; 1. Carvedilol 25 mg twice a day. 2. Crestor 10 mg at night. 3. Oxycodone 5 or 10 mg every 8 hours p.r.n. 4. Clopidogrel 75 mg a day. 5. Aspirin 81 mg a day. 6. Xanax p.r.n. PHYSICAL EXAMINATION: GENERAL: He is in no distress. VITAL SIGNS: The heart rate was 90 per minute and fairly irregular. The blood pressure is 120/80 and there is no orthostasis. LUNGS: Clear. HEART: The heart sounds are normal with no murmur or gallop. ABDOMEN: Soft. EXTREMITIES: There is no edema of the legs. IMPRESSION: 1. Probable permanent atrial fibrillation, not on any anticoagulation. 2. Bleeding peptic ulcer and anemia as compared to a month ago. 3. History of cerebrovascular accident, on Plavix and aspirin. 4. Dyslipidemia, on statin. 5. Generalized aches and pains and fibromyalgia and joint pains, taking narcotics. 6. Hypertension. He has undergone EGD which has shown the source of bleeding and the bleeding has been controlled. The gusset edger wants him to be n.p.o. at the present time and so we will give him IV fluids. His diet will be advanced. He will then be discharged. As far as his atrial fibrillation goes, his rate is under control. He will need to be on anticoagulation, but that would not be cárdenas at the present time. I will talk to gastroenterology as to when we could start him on the newer oral anticoagulants. I am not quite sure why he is on aspirin and Plavix and that will be discontinued for the moment. We will obtain a myocardial perfusion imaging study as an outpatient because of the history of chest pain that is relieved with nitroglycerin. There is no need to repeat the echocardiogram since it was done just a month ago. The left atrium is enlarged, consistent with his history of atrial fibrillation. COLLINS WARNER MD DR: PRABHJOT/lorna JOB#: [id number] / [id number]
[2016-12-05] MEDS: ATORVASTATIN CALCIUM 20 MG TABLET PO SCH (21:18)
[2016-12-05 23:00] VITALS: BP 104/50
[2016-12-06] MEDS: oxyCODONE IR 5 MG TABLET PO PRN ×3 (01:30→14:07)
[2016-12-06 03:10] VITALS: BP 117/65
[2016-12-06] MEDS: PANTOPRAZOLE 40 MG TABLET.DR. PO SCH (07:24)
[2016-12-06 07:30] VITALS: BP 140/60
[2016-12-06] MEDS: ALPRAZolam 1 MG TABLET PO PRN (07:30)
[2016-12-06 08:41] LABS: HEMATOCRIT 26.6 % (39.0-53.0); HEMOGLOBIN 8.7 g/dL (13.0-17.5); RED BLOOD COUNT 2.9 x10^6/uL (4.30-5.70); RED CELL DISTRIBUTION WIDTH 15.4 % (11.5-14.5); WHITE BLOOD COUNT 8.7 x10^3/uL (4.0-11.0)
[2016-12-06 08:47] LABS: FREE T4 0.93 ng/dL (0.76-1.46)
[2016-12-06 10:30] VITALS: BP 108/50
--- NOTE | 2016-12-06 12:39 | PDOC ---
Subjective: Subjective: tolerating PO Objective: Vital Signs: Vital Signs Date Time Temp Pulse Resp B/P (MAP) Pulse Ox O2 Delivery O2 Flow Rate FiO2 12/06/16 10:30 97.9 90 18 108/50 (69) 95 Room Air 97.9 Labs: Laboratory Tests Test 12/05/16 14:43 12/06/16 07:45 White Blood Count 8.9 x10^3/uL (4.0-11.0) 8.7 x10^3/uL (4.0-11.0) Red Blood Count 2.93 x10^6/uL (4.30-5.70) 2.90 x10^6/uL (4.30-5.70) Hemoglobin 8.9 g/dL (13.0-17.5) 8.7 g/dL (13.0-17.5) Hematocrit 26.9 % (39.0-53.0) 26.6 % (39.0-53.0) Mean Corpuscular Volume 92 fL (79-100) 92 fL (79-100) Mean Corpuscular Hemoglobin 30 pg (25-35) 30 pg (25-35) Mean Corpuscular Hemoglobin Concent 33 g/dL (31-37) 33 g/dL (31-37) Red Cell Distribution Width 15.3 % (11.5-14.5) 15.4 % (11.5-14.5) Platelet Count 232 x10^3/uL (140-400) 245 x10^3/uL (140-400) Neutrophils (%) (Auto) 75 % (31-73) Lymphocytes (%) (Auto) 13 % (24-48) Monocytes (%) (Auto) 10 % (0-9) Eosinophils (%) (Auto) 2 % (0-3) Basophils (%) (Auto) 0 % (0-3) Neutrophils # (Auto) 6.7 x10^3uL (1.8-7.7) Lymphocytes # (Auto) 1.2 x10^3/uL (1.0-4.8) Monocytes # (Auto) 0.9 x10^3/uL (0.0-1.1) Eosinophils # (Auto) 0.1 x10^3/uL (0.0-0.7) Basophils # (Auto) 0.0 x10^3/uL (0.0-0.2) Free Thyroxine 0.93 ng/dL (0.76-1.46) Free Triiodothyronine (T3) pg/mL 1.40 pg/mL (2.18-3.98) Physical Exam: Physical Exam: GEN: NAD HEENT: OP clear CV: S1S2 without murmurs, rubs, or gallops RESP: CTAB without wheezing, rhonchi, or crackles ABD: NABS, SNT/ND EXT: No edema NEURO: AAO x 3 Assessment & Plan: Assessment : 1) Anemia 2) non-erosive gastritis 3) lesser curve ulcer s/p bx/epi injection/gold probe cautery 4)PMH polyps Plan: Per Dr Stephen, hold ASA/Plavix for 7 total days okay to d/c on BID PPI Favor recheck Hgb by PCP this week Problems: KIANNA BANERJEE MD Dec 06, 2016 12:39
[2016-12-06] MEDS ORDERED: PANT40TA3 PO (13:28)
--- NOTE | 2016-12-06 14:18 | DS ---
DATE OF DISCHARGE: 12/06/2016 HOSPITAL COURSE: This is a 76-year-old white male who came in because of extreme weakness and an episode of syncope. He called the ambulance. When he came in, his hemoglobin was down to 9 grams percent as opposed to a hemoglobin about 6 weeks ago of 15 grams percent. He denied having any hemoptysis, hematochezia or melena. He was taken to the GI lab by Dr. Stephen. An EGD was performed on the same day. The findings were acute blood loss anemia, nausea, vomiting and nonerosive gastritis. There was a lesser curve ulcer, which was injected and cauterized. He was observed. There was no further drop in the hemoglobin and it stayed around 8.9 grams percent. He was given clear liquids for a day or two. He was then given solid food. He had no abdominal pain, nausea or vomiting and his hemoglobin stayed stable. GI saw him on 12/06/2016 and recommended that we hold aspirin and Plavix for 7 days. They okayed his discharge on Protonix b.i.d. We were to check a hemoglobin in 1 week. Apart from the above, he was noted to be in atrial fibrillation with a controlled ventricular response. He had been in a sinus rhythm when he was here about a month ago. He had no symptoms of chest pain, shortness of breath or palpitations in between. I have a record from [facility] from 04/2015, at which time he was noted to be in atrial fibrillation. His rate was controlled. Clearly he is not a candidate for anticoagulation at this point. He needs to be on one of the newer oral anticoagulants. At present, as per Dr. Stephen, I plan to put him back on aspirin and Plavix. After a month or so I will talk to Dr. Stephen to see whether he wants to do another EGD prior to placing him on the anticoagulants that he needs. He did have swelling of the legs. He had been given normal saline while he was here. He states he has had the swelling before and it was not much different. He was thus discharged and will be seen in the office on 12/10/2016 or 12/11/2016 and another hemoglobin will be obtained. FINAL DIAGNOSES: 1. Acute blood loss anemia. 2. Atrial fibrillation, recurrent. 3. Erosive gastritis and ulcer in the stomach. HOMEGOING INSTRUCTIONS: 1. Activities to tolerance. 2. Protonix 40 mg twice a day for 1 month and then once a day. 3. Alprazolam 1 mg q.8 hours p.r.n. 4. Carvedilol 12.5 mg twice a day. 5. Lasix 20 mg a day. 6. Nitroglycerin p.r.n. 7. Oxycodone 10 mg every 6 hours p.r.n. 8. Paroxetine 10 mg a day. 9. Ramipril 5 mg a day. 10. Rosuvastatin 10 mg at night. He will be followed up in the office. COLLINS WARNER MD DR: PRABHJOT/lorna JOB#: [id number] / [id number]
[2016-12-06 14:30] VITALS: BP 138/58
--- NOTE | 2016-12-07 13:25 | PATHOLOGY ---
PATHOLOGY REPORT * * * * * * * * FINAL DIAGNOSIS: Gastric biopsies, gastric ulcer: - Segment of gastric body mucosa showing minimal chronic inflammation, and segment of hyperplastic superficial gastric foveolar epithelium identified. COMMENT: Sections of the gastric ulcer biopsy reveal a segment of gastric body mucosa showing minimal chronic inflammation, and a small segment of hyperplastic superficial gastric foveolar epithelium. An immunoperoxidase stain for Helicobacter is obtained. No Helicobacter organisms are identified. There is no evidence of malignancy. (JPM:mgr; 12/07/2016) Special Stain Performed: Immunoperoxidase stain for Helicobacter (A1) REPORT ELECTRONICALLY SIGNED BY: Neri Brewer M.D. DATE/TIME: 12/07/2016 13:23 * * * * * * * * GROSS PATHOLOGY: Received in formalin labeled "Sam Rodriguez, gastric ulcer BX," are 2 segments of mccracken soft tissue measuring 0.8 x 0.2 x 0.3 cm in aggregate dimensions and ranging from 0.2 to 0.5 cm in maximum dimension. The specimen is submitted entirely in cassette A1. (TSD; 12/04/2016) INITIAL CPT CODE(S): A; 37691, 70147 Professional services performed [place] [address] Technical services performed by [facility] at [address] [place] [address] [address], [place] [address]. SPECIMEN(S) RECEIVED: A.Gastric ulcer CLINICAL HISTORY: GI bleed, gastric ulcer PATIENT: SAM RODRIGUEZ /AGE: 3 1940 (Age: 76) PATIENT #: [id number] ALT CASE #: SPECIMEN COLLECTION DATE: 12/04/2016 SPECIMEN RECEIVED DATE: 12/04/2016 [facility] - [id number] [place] [address] - PHONE: [phone] * * * END OF REPORT * * *
[2017-01-06] MEDS ORDERED: ALPR0.25 PO (13:08)
[2017-01-06] MEDS ORDERED: RAMI5CAP33 PO (13:11)
[2017-01-06] MEDS ORDERED: ASPI-482 PO (13:11)
[2017-01-06] MEDS ORDERED: CLOP75TA PO (13:11)
== END 2016-12-06 15:07 | disposition home or self-care (01) | DRG 811 ==
LOC: ER 05:48 → 5 NORTH 07:45
PROVIDERS: ADMIT Specialist; ATTEND Specialist
PROC: 3E0G8GC Introduction of Other Therapeutic Substance into Upper GI, Via Natural or Artificial Opening Endoscopic (ICD-10-PCS; 2016-12-04)
PROC: 0DB68ZX Excision of Stomach, Via Natural or Artificial Opening Endoscopic, Diagnostic (ICD-10-PCS; principal; 2016-12-04 11:00)
PROC: 0W3P8ZZ Control Bleeding in Gastrointestinal Tract, Via Natural or Artificial Opening Endoscopic (ICD-10-PCS; 2016-12-04 11:00)
DX: D62 Acute posthemorrhagic anemia (principal); K25.4 Chronic or unspecified gastric ulcer with hemorrhage; I11.0 Hypertensive heart disease with heart failure; I48.2 Chronic atrial fibrillation; I50.9 Heart failure, unspecified; K29.60 Other gastritis without bleeding; F32.9 Major depressive disorder, single episode, unspecified; E78.5 Hyperlipidemia, unspecified; F41.9 Anxiety disorder, unspecified; I25.10 Atherosclerotic heart disease of native coronary artery without angina pectoris; I34.0 Nonrheumatic mitral (valve) insufficiency; M79.7 Fibromyalgia; Z79.899 Other long term (current) drug therapy; Z86.73 Personal history of transient ischemic attack (TIA), and cerebral infarction without residual deficits; Z95.5 Presence of coronary angioplasty implant and graft; Z87.11 Personal history of peptic ulcer disease; Z90.49 Acquired absence of other specified parts of digestive tract
CPT/HCPCS: 36415; 70450; 71010; 80053; 82274; 83735; 83880; 84439; 84443; 84481; 84484; 85007; 85025; 85027; 85610; 86850; 86900; 86901; 88305; 88342; 93005; 96361; 96374; C9113; J0171; J2405; J2704; J7040; J7042; J7120; 99285-25; J2001